=== PATIENT | female | born 1945 | race Hispanic/Latino ===

== ENCOUNTER → 2017-10-26 | Outpatient (CLI) | payer OTHER | LOC: RAH 12:24 | PROVIDERS: ATTEND Internal Medicine Endocrinology, Diabetes & Metabolism | DX: E04.1 Nontoxic single thyroid nodule (principal) | CPT/HCPCS: 76536 ==

== ENCOUNTER → 2018-06-28 | Outpatient (CLI) | payer OTHER | END | disposition home or self-care (01) | LOC: RAH 09:35 | PROVIDERS: ATTEND Internal Medicine | DX: R13.12 Dysphagia, oropharyngeal phase (principal); R63.3 Feeding difficulties | CPT/HCPCS: G8996; G8997; G8998; 74230; 92611 ==

== ENCOUNTER → 2018-07-06 | Outpatient (CLI) | payer OTHER | END | disposition home or self-care (01) | LOC: RAH 10:00 | PROVIDERS: ATTEND Physician Assistant Medical | DX: Z12.31 Encounter for screening mammogram for malignant neoplasm of breast (principal) | CPT/HCPCS: 77067 ==

== ENCOUNTER → 2019-01-30 | Outpatient (CLI) | payer OTHER ==
[2019-01-30 09:17] LABS: BASOPHILS % (AUTO) 0.4 % (0.0-5.0); EOSINOPHILS % (AUTO) 0.9 % (0.0-8.0); HEMATOCRIT 36.3 % (36-48); LYMPHOCYTES % (AUTO) 29.7 % (21.0-51.0); MEAN CORPUSCULAR HEMOGLOBIN 33.2 pg (27.0-33.0); MEAN CORPUSCULAR HGB CONC 34.4 g/dL (32.0-36.0); MEAN CORPUSCULAR VOLUME 96.4 fL (79-99); MONOCYTES % (AUTO) 8.1 % (3.0-13.0); NEUTROPHILS % (AUTO) 60.9 % (40.0-77.0); PLATELET COUNT (AUTO) 225 K/uL (130-400); RED BLOOD CELL COUNT(AUTO) 3.77 MIL/uL (4.00-5.50); RED CELL DISTRIBUTION WIDTH 12.4 % (11.0-15.5); WHITE BLOOD COUNT (AUTO) 6.3 K/uL (4.8-10.8)
[2019-01-30 09:25] LABS: POTASSIUM 4.6 mmol/L (3.5-5.1)
[2019-01-30 09:29] LABS: ALBUMIN 3.8 g/dL (3.5-5.0); BILIRUBIN,TOTAL 0.3 mg/dL (0.2-1.0); TOTAL PROTEIN, SERUM 7.6 g/dL (6.0-8.3)
== END | disposition home or self-care (01) ==
LOC: RAH 08:27
PROVIDERS: ATTEND Internal Medicine Gastroenterology
DX: K76.0 Fatty (change of) liver, not elsewhere classified (principal); N28.1 Cyst of kidney, acquired
CPT/HCPCS: 36415; 76700; 80053; 85025

== ENCOUNTER → 2019-02-13 | Outpatient (CLI) | payer OTHER | END | disposition home or self-care (01) | LOC: RAH 10:00 | PROVIDERS: ATTEND Internal Medicine Gastroenterology | DX: K57.10 Diverticulosis of small intestine without perforation or abscess without bleeding (principal); K44.9 Diaphragmatic hernia without obstruction or gangrene; K21.9 Gastro-esophageal reflux disease without esophagitis | CPT/HCPCS: 74240 ==

== ENCOUNTER 2019-10-13 16:07 | Emergency (ER) | payer OTHER ==
[2019-10-13 17:03] LABS: BASOPHILS % (AUTO) 0.5 % (0.0-5.0); EOSINOPHILS % (AUTO) 1.2 % (0.0-8.0); HEMATOCRIT 35.4 % (36-48); LYMPHOCYTES % (AUTO) 31.6 % (21.0-51.0); MEAN CORPUSCULAR HEMOGLOBIN 32.5 pg (27.0-33.0); MEAN CORPUSCULAR HGB CONC 34.5 g/dL (32.0-36.0); MEAN CORPUSCULAR VOLUME 94.4 fL (79-99); MONOCYTES % (AUTO) 9.1 % (3.0-13.0); NEUTROPHILS % (AUTO) 57.3 % (40.0-77.0); PLATELET COUNT (AUTO) 198 K/uL (130-400); RED BLOOD CELL COUNT(AUTO) 3.75 MIL/uL (4.00-5.50); RED CELL DISTRIBUTION WIDTH 11.9 % (11.0-15.5)
[2019-10-13] MEDS ORDERED: ASPIRIN 325 MG TABLET ONE (17:07)
[2019-10-13 17:17] LABS: CREATININE 1.1 mg/dL (0.5-1.5); POTASSIUM 3.9 mmol/L (3.5-5.1)
[2019-10-13 17:19] LABS: INR 0.89 (0.85-1.15); PARTIAL THROMBOPLASTIN TIME 27.1 SEC (26.3-35.5); PROTHROMBIN TIME 9.7 SEC (9.6-11.6)
[2019-10-13 17:21] LABS: ALBUMIN 3.5 g/dL (3.5-5.0); BILIRUBIN,TOTAL 0.2 mg/dL (0.2-1.0); TOTAL PROTEIN, SERUM 7.8 g/dL (6.0-8.3)
[2019-10-13] MEDS ORDERED: ACETAMINOPHEN EXTRA STRENGTH 500 MG TABLET ONE (17:26)
== END 2019-10-13 18:16 | disposition left against medical advice (07) ==
LOC: EDH 16:07
DX: R07.89 Other chest pain (principal); R94.31 Abnormal electrocardiogram [ECG] [EKG]; I25.10 Atherosclerotic heart disease of native coronary artery without angina pectoris; E78.5 Hyperlipidemia, unspecified; E11.9 Type 2 diabetes mellitus without complications; I10 Essential (primary) hypertension
CPT/HCPCS: 36415; 71045; 80053; 82550; 84484; 85025; 85610; 85730; 93005

== ENCOUNTER → 2019-11-21 | Outpatient (CLI) | payer OTHER ==
[~2019-11-21] MED LIST: REGADENOSON 0.4 MG/5 ML PF SYG IVP SCH
== END | disposition home or self-care (01) ==
LOC: SHCH 08:11
PROVIDERS: ATTEND Internal Medicine Cardiovascular Disease
DX: I25.10 Atherosclerotic heart disease of native coronary artery without angina pectoris (principal)
CPT/HCPCS: 78452; 93017; 96374; A9500 ×2; J2785

== ENCOUNTER → 2020-12-12 | Outpatient (CLI) | payer MEDICARE | END | disposition home or self-care (01) | LOC: SHCH 12:42 | PROVIDERS: ATTEND Internal Medicine Cardiovascular Disease | DX: R06.09 Other forms of dyspnea (principal) | CPT/HCPCS: 93306; 93356 ==

== ENCOUNTER → 2022-01-07 | Outpatient (CLI) | payer MEDICARE | END | disposition home or self-care (01) | LOC: RAH 10:10 | PROVIDERS: ATTEND Internal Medicine Gastroenterology | DX: R13.10 Dysphagia, unspecified (principal); R63.30 Feeding difficulties, unspecified | CPT/HCPCS: 74230; 92611 ==

== ENCOUNTER → 2022-10-08 | Outpatient (CLI) | payer MEDICARE | END | disposition home or self-care (01) | LOC: RAH 12:35 | PROVIDERS: ATTEND Internal Medicine Gastroenterology | DX: R13.12 Dysphagia, oropharyngeal phase (principal); R63.30 Feeding difficulties, unspecified | CPT/HCPCS: 74230; 92611 ==

== ENCOUNTER 2022-12-27 05:42 | Observation (INO) | payer MEDICARE ==
[~2022-12-27] VITALS: Ht 167.6 cm; Wt 72.6 kg
[2022-12-27 06:11] LABS: BASOPHILS % (AUTO) 0.5 % (0.0-5.0); EOSINOPHILS % (AUTO) 0.9 % (0.0-8.0); HEMATOCRIT 33.4 % (36-48); LYMPHOCYTES % (AUTO) 41.9 % (21.0-51.0); MEAN CORPUSCULAR HEMOGLOBIN 32.5 pg (27.0-33.0); MEAN CORPUSCULAR HGB CONC 34.4 g/dL (32.0-36.0); MEAN CORPUSCULAR VOLUME 94.4 fL (79-99); MONOCYTES % (AUTO) 11.1 % (3.0-13.0); NEUTROPHILS % (AUTO) 45.1 % (40.0-77.0); PLATELET COUNT (AUTO) 160 K/uL (130-400); RED BLOOD CELL COUNT(AUTO) 3.54 MIL/uL (4.00-5.50); RED CELL DISTRIBUTION WIDTH 11.9 % (11.0-15.5); WHITE BLOOD COUNT (AUTO) 6.3 K/uL (4.8-10.8)
[2022-12-27 06:46] LABS: ALBUMIN 3.6 g/dL (3.5-5.0); CREATININE 1.1 mg/dL (0.5-1.5); MAGNESIUM 1.6 mg/dL (1.80-2.40); POTASSIUM 3.9 mmol/L (3.5-5.1); TOTAL PROTEIN, SERUM 7.4 g/dL (6.0-8.3)
[2022-12-27] MEDS ORDERED: 0.9%NACL 1000ML 1,000 ML IV ONE (07:30)
[2022-12-27 07:41] LABS: INR 0.93 (0.85-1.15); PROTHROMBIN TIME 9.9 SEC (9.6-11.6)
[2022-12-27 07:43] LABS: PARTIAL THROMBOPLASTIN TIME 25.4 SEC (26.3-35.5)
[2022-12-27] MEDS ORDERED: SODI100037 PO (10:20)
[2022-12-27] MEDS ORDERED: METO-391 PO (10:20)
[2022-12-27] MEDS ORDERED: AEC81 PO (10:20)
[2022-12-27] MEDS ORDERED: ATOR40TA69 PO (10:20)
[2022-12-27] MEDS ORDERED: LEVO50CA4 PO (10:20)
[2022-12-27] MEDS ORDERED: DICY20TA3 PO (10:20)
[2022-12-27] MEDS ORDERED: DIVA500T52 PO (10:20)
[2022-12-27] MEDS ORDERED: SIME125C81 PO (10:20)
[2022-12-27] MEDS ORDERED: MIRA25TA PO (10:20)
[2022-12-27] MEDS ORDERED: ESOM40CA54 PO (10:20)
[2022-12-27] MEDS ORDERED: MELA3TAB69 PO (10:20)
[2022-12-27] MEDS ORDERED: ISOS30TA92 PO (10:20)
[2022-12-27] MEDS ORDERED: LOSA50TA64 PO (10:20)
[2022-12-27] MEDS ORDERED: LINA145C PO (10:20)
[2022-12-27] MEDS ORDERED: PROP20TA7 PO (10:20)
[2022-12-27] MEDS ORDERED: VITAMIN D PO (10:20)
[2022-12-27] MEDS ORDERED: HALO2TAB PO (10:20)
[2022-12-27] MEDS ORDERED: SUCR1TAB2 PO (10:20)
[2022-12-27] MEDS ORDERED: FURO20TA4 PO (10:20)
[2022-12-27 11:35] VITALS: BP 103/63
== END 2022-12-27 16:15 | disposition left against medical advice (07) ==
LOC: EDH 05:42 → EDHIP 08:25 → 2DH 13:09 → EDHIP 13:45
PROVIDERS: ADMIT Family Medicine; ATTEND Family Medicine
DX: E87.1 Hypo-osmolality and hyponatremia (principal); E86.0 Dehydration; E11.9 Type 2 diabetes mellitus without complications; I10 Essential (primary) hypertension; E03.9 Hypothyroidism, unspecified; E78.00 Pure hypercholesterolemia, unspecified; G20 Parkinson's disease; I25.10 Atherosclerotic heart disease of native coronary artery without angina pectoris; Z79.899 Other long term (current) drug therapy
CPT/HCPCS: 96360; 99284; 82550; 83735; 84484; 80053; 83880; 85025; 85610; 85730; 82948; 36415; 93005; G0378 ×8

== ENCOUNTER 2023-11-09 11:31 | Emergency (ER) | payer MEDICARE ==
[~2023-11-09] VITALS: Ht 167.6 cm; Wt 72.6 kg
[~2023-11-09 11:31] MED LIST changes: +AEC81 PO; +ATOR40TA69 PO; +DICY20TA3 PO; +DIVA500T52 PO; +ESOM40CA54 PO; +FURO20TA4 PO; +HALO2TAB PO; +ISOS30TA92 PO; +LEVO50CA4 PO; +LINA145C PO; +LOSA50TA64 PO; +MELA3TAB69 PO; +METO-391 PO; +MIRA25TA PO; +PROP20TA7 PO; -REGADENOSON 0.4 MG/5 ML PF SYG IVP SCH; +SIME125C81 PO; +SODI100037 PO; +SUCR1TAB2 PO; +VITAMIN D PO
[2023-11-09 12:15] LABS: BASOPHILS # (AUTO) 0.02 K/uL (0.00-0.20); BASOPHILS % (AUTO) 0.3 % (0.0-5.0); EOSINOPHILS # (AUTO) 0.02 K/uL (0.00-0.70); EOSINOPHILS % (AUTO) 0.3 % (0.0-8.0); HEMATOCRIT 31.7 % (36-48); IMMATURE GRANULOCYTE ABSOLUTE 0.02 K/uL (0-1); LYMPHOCYTES # (AUTO) 1.5 K/uL (1.0-4.8); LYMPHOCYTES % (AUTO) 19.6 % (21.0-51.0); MEAN CORPUSCULAR HEMOGLOBIN 32.8 pg (27.0-33.0); MEAN CORPUSCULAR VOLUME 93.8 fL (79-99); MONOCYTES # (AUTO) 0.8 K/uL (0.1-1.0); MONOCYTES % (AUTO) 10.5 % (3.0-13.0); NEUTROPHILS # (AUTO) 5.3 K/uL (1.8-7.7); PLATELET COUNT (AUTO) 252 K/uL (130-400); RED BLOOD CELL COUNT(AUTO) 3.38 MIL/uL (4.00-5.50); WHITE BLOOD COUNT (AUTO) 7.7 K/uL (4.8-10.8)
[2023-11-09 12:28] LABS: CREATININE 1.1 mg/dL (0.5-1.0); POTASSIUM 3.6 mmol/L (3.5-5.1)
[2023-11-09 12:33] LABS: ALBUMIN 2.9 g/dL (3.5-5.0); BILIRUBIN,TOTAL 0.3 mg/dL (0.2-1.0); TOTAL PROTEIN, SERUM 7.1 g/dL (6.0-8.3)
[2023-11-09] MEDS: 0.9% NACL 500ML IV.SOLN 500 ML IV ONE (12:39)
[2023-11-09] MEDS ORDERED: FLUT16H NASAL (12:59)
[2023-11-09] MEDS ORDERED: AMOX1TAB16 PO (12:59)
[2023-11-09 13:09] VITALS: BP 131/65; PULSE 85; RESP 18; O2SAT 99
[2023-11-09] MEDS: AMOX/CLAV 875/125MG TAB PO ONE (13:19)
== END 2023-11-09 13:56 | disposition home or self-care (01) ==
LOC: EDH 11:31
DX: J32.0 Chronic maxillary sinusitis (principal); R05.9 Cough, unspecified; R09.89 Other specified symptoms and signs involving the circulatory and respiratory systems; E11.9 Type 2 diabetes mellitus without complications; E78.00 Pure hypercholesterolemia, unspecified; E03.9 Hypothyroidism, unspecified; I10 Essential (primary) hypertension; K21.9 Gastro-esophageal reflux disease without esophagitis; Z79.82 Long term (current) use of aspirin; Z79.890 Hormone replacement therapy; Z79.899 Other long term (current) drug therapy
CPT/HCPCS: 99285; 96360; 71045; 84484; 80053; 85025; 36415; 70210; 93005; J7040

== ENCOUNTER 2023-12-06 17:00 | Emergency (ER) | payer MEDICARE ==
[~2023-12-06] VITALS: Ht 167.6 cm; Wt 73.0 kg
[~2023-12-06 17:00] MED LIST changes: +AMOX1TAB16 PO; +FLUT16H NASAL
[2023-12-06 21:27] VITALS: BP 142/68; PULSE 62; RESP 18; O2SAT 98
== END 2023-12-06 21:33 | disposition home or self-care (01) ==
LOC: EDH 17:00
DX: S00.03XA Contusion of scalp, initial encounter (principal); S50.01XA Contusion of right elbow, initial encounter; S10.83XA Contusion of other specified part of neck, initial encounter; I10 Essential (primary) hypertension; E11.9 Type 2 diabetes mellitus without complications; E78.00 Pure hypercholesterolemia, unspecified; E03.9 Hypothyroidism, unspecified; K21.9 Gastro-esophageal reflux disease without esophagitis; G20.A1 Parkinson's disease without dyskinesia, without mention of fluctuations; Z79.82 Long term (current) use of aspirin; Z79.899 Other long term (current) drug therapy; Z98.890 Other specified postprocedural states; W18.39XA Other fall on same level, initial encounter; Y93.89 Activity, other specified; Y92.89 Other specified places as the place of occurrence of the external cause; Y99.8 Other external cause status
CPT/HCPCS: 70450; 71250; 72125; 73070; 74176

== ENCOUNTER → 2024-04-25 | Outpatient (CLI) | payer MEDICARE ==
[~2024-04-25] MED LIST changes: -ESOM40CA54 PO; +ESOM40CA66 PO
== END | disposition home or self-care (01) ==
LOC: RAH 13:05
PROVIDERS: ATTEND Internal Medicine Gastroenterology
DX: R13.12 Dysphagia, oropharyngeal phase (principal); R63.30 Feeding difficulties, unspecified
CPT/HCPCS: 74230; 92611

== ENCOUNTER → 2024-07-04 | Outpatient (CLI) | payer MEDICARE ==
--- NOTE | 2024-07-04 10:06 | HMCIMG ---
DEXA BONE DENSITY SURVEY HISTORY: Osteoporosis COMPARISON: None FINDINGS: Bone densitometry study was performed. Bone mineral density of the lumbar spine is 0.888 gram per centimeter square which corresponds to a T score of -1.4 and a Z score of 1.2. Bone mineral density of the left hip is 0.828 grams per centimeter square which corresponds to a T score of -1 and a Z score of 1.1. IMPRESSION: 1. Osteopenia of the lumbar spine and left hip.
== END | disposition home or self-care (01) ==
LOC: RAH 08:13
PROVIDERS: ATTEND Internal Medicine
DX: M85.89 Other specified disorders of bone density and structure, multiple sites (principal); M81.0 Age-related osteoporosis without current pathological fracture; E83.52 Hypercalcemia
CPT/HCPCS: 77080

== ENCOUNTER 2024-12-12 11:33 | Observation (INO) | payer MEDICARE ==
[2024-12-11 22:00] VITALS: BP 152/62; PULSE 65; RESP 18; TEMP 98
[~2024-12-12] VITALS: Ht 162.6 cm; Wt 63.6 kg
[~2024-12-12 11:33] MED LIST changes: -LEVO50CA4 PO; +LEVO50CA5 PO
--- NOTE | 2024-12-12 11:46 | EKG ---
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 : 1945 Requested By: DEJAN TEAGUE Order Number: [id number] Reading MD: Edmar Matthews Measurements Intervals [place] Rate: 68 P: 0 NC: 0 QRS: 49 QRSD: 86 T: 138 QT: 424 QTc: 455 Interpretive Statements Atrial flutter with predominant 4:1 AV block Repol abnrm suggests ischemia, diffuse leads Compared to ECG 11/09/2023 11:56:52 AV block, advanced (high-grade) now present Early repolarization now present Possible ischemia now present T-wave abnormality no longer present Electronically Signed On 12-12-2024 16:18:55 CDT by Edmar Matthews Please click the below link to view image of tracing.
[2024-12-12 12:15] LABS: BASOPHILS # (AUTO) 0.01 K/uL (0.00-0.20); BASOPHILS % (AUTO) 0.2 % (0.0-5.0); EOSINOPHILS # (AUTO) 0.02 K/uL (0.00-0.70); EOSINOPHILS % (AUTO) 0.5 % (0.0-8.0); HEMATOCRIT 34.7 % (36-48); IMMATURE GRANULOCYTE ABSOLUTE 0.01 K/uL (0-1); LYMPHOCYTES # (AUTO) 1.6 K/uL (1.0-4.8); LYMPHOCYTES % (AUTO) 35.1 % (21.0-51.0); MEAN CORPUSCULAR HEMOGLOBIN 33.6 pg (27.0-33.0); MEAN CORPUSCULAR HGB CONC 34.6 g/dL (32.0-36.0); MEAN CORPUSCULAR VOLUME 97.2 fL (79-99); MONOCYTES # (AUTO) 0.6 K/uL (0.1-1.0); MONOCYTES % (AUTO) 13.8 % (3.0-13.0); NEUTROPHILS # (AUTO) 2.2 K/uL (1.8-7.7); NEUTROPHILS % (AUTO) 50.2 % (40.0-77.0); PLATELET COUNT (AUTO) 138 K/uL (130-400); RED BLOOD CELL COUNT(AUTO) 3.57 MIL/uL (4.00-5.50); WHITE BLOOD COUNT (AUTO) 4.4 K/uL (4.8-10.8)
[2024-12-12] MEDS: LACTATED RINGERS 1000ML 1,000 ML IV ONE (12:21)
[2024-12-12 12:23] LABS: POTASSIUM 4.1 mmol/L (3.5-5.1)
[2024-12-12 12:27] LABS: MAGNESIUM 1.6 mg/dL (1.80-2.40)
[2024-12-12 12:33] LABS: B-TYPE NATRIURETIC PEPTIDE 356 pg/mL (0-100)
--- NOTE | 2024-12-12 12:42 | HMCIMG ---
Exam Type: CHEST 1VW Clinical Information: cp Comparison: None Findings: The lungs are clear of infiltrates. The heart is normal in size. The bony and soft tissue structures of the chest are unremarkable. Impression: Clear lungs.
[2024-12-12 12:53] LABS: INR 0.97 (0.85-1.15); PROTHROMBIN TIME 10.3 SEC (9.6-11.6)
[2024-12-12 12:55] LABS: PARTIAL THROMBOPLASTIN TIME 27.5 SEC (26.3-35.5)
--- NOTE | 2024-12-12 13:11 | ERN ---
General Chief Complaint: Chest Pain Stated Complaint: CHEST PAIN Time Seen by MD: 11:40 Source: patient History of Present Illness Initial Comments Patient is a an 79-year-old female coming in with multiple complaints. Patient has a history of Parkinson's but lately has been having chest discomfort. She states that she called earlier in the morning but decided to hold off this is the chest pain she was having. Patient has not been able to sleep she states and has a history of obstructive sleep apnea as well. She has also been presenting with generalized body weakness. Allergies: Coded Allergies: No Allergy Information Available (Verified Allergy, Unknown, 02/11/16) No Known Drug Allergies (Unverified Allergy, Unknown, 11/20/19) Home Meds Reported Medications Haloperidol (Haloperidol) 2 Mg Tablet, 1 TAB PO DAILY for 30 Days, #60 TAB 0 Refills 12/12/24 Haloperidol (Haloperidol) 2 Mg Tablet, 1 TAB PO BID for 30 Days, #60 TAB 0 R efills 12/12/24 Haloperidol (Haloperidol) 2 Mg Tablet, 2 TAB PO HS for 30 Days, #30 TAB 0 Refills 12/12/24 Isosorbide Mononitrate (Isosorbide Mononitrate ER) 30 Mg Tab.er.24h, 0.5 TAB PO DAILY for 30 Days, #30 TAB 0 Refills 12/12/24 Ropinirole HCl (Ropinirole HCl) 0.25 Mg Tablet, 1 TAB PO HS for 30 Days, #30 TAB 0 Refills 12/12/24 Propranolol HCl (Propranolol HCl) 20 Mg Tablet, 1 TAB PO BID for 30 Days, #60 TAB 0 Refills 12/12/24 Trazodone HCl (Trazodone HCl) 50 Mg Tablet, 1 TAB PO HS for 30 Days, #30 TAB 0 Refills 12/12/24 Aspirin (ASPIRIN 81 MG ECTAB) 81 Mg Ectab, 81 MG PO DAILY, TAB.EC 12/27/22 Simethicone (Simethicone) 125 Mg Capsule, 125 MG PO QID, CAP 12/27/22 Linaclotide (Linzess) 145 Mcg Capsule, 145 MCG PO DAILY, CAP 12/27/22 Losartan Potassium (Losartan Potassium) 50 Mg Tablet, 50 MG PO DAILY, TAB 12/27/22 Esomeprazole Magnesium (Esomeprazole Magnesium) 40 Mg Capsule.dr, 40 MG PO DAILY, CAP 12/27/22 Furosemide (Furosemide) 20 Mg Tablet, 20 MG PO DAILY, TAB 12/27/22 Divalproex Sodium (Divalproex Sodium ER) 500 Mg Tab.er.24h, 500 MG PO BID, TAB 12/27/22 Atorvastatin Calcium (LIPITOR) 40 Mg Tablet, 40 MG PO DAILY, TAB 12/27/22 Levothyroxine Sodium (Levothyroxine) 50 Mcg Capsule, 50 MCG PO DAILY, CAP 12/27/22 Sodium Chloride (Sodium Chloride) 1,000 Mg Tab, 1000 MG PO BID, TAB 12/27/22 Discontinued Reported Medications [Vitamin D] No Conflict Check, 11962 UNITS PO AD 12/27/22 Melatonin (Melatonin) 3 Mg Tab.rapdis, 3 MG PO DAILY, TAB 12/27/22 Dicyclomine HCl (Dicyclomine HCl) 20 Mg Tablet, 20 MG PO DAILY, TAB 12/27/22 Metoprolol Succinate (Metoprolol Succinate) 50 Mg Tab.er.24h, 50 MG PO DAILY, TAB 12/27/22 Mirabegron (Myrbetriq) 25 Mg Tab.er.24h, 25 MG PO DAILY, TAB 12/27/22 Sucralfate (Sucralfate) 1 Gm Tablet, 1 GM PO TID, TAB 12/27/22 Isosorbide Mononitrate (Isosorbide Mononitrate ER) 30 Mg Tab.er.24h, 30 MG PO DAILY, TAB 12/27/22 Propranolol HCl (Propranolol HCl) 20 Mg Tablet, 20 MG PO TID, TAB 12/27/22 Haloperidol (Haloperidol) 2 Mg Tablet, 2 MG PO BID, TAB 12/27/22 Discontinued Scripts Fluticasone Propionate (Flonase Nasal [place]) 50 Mcg/Actuation [place], 1-2 SPRAY NASAL ONCE, #1 BOTTLE 0 Refills Prov:CHARLIE [facility] 11/09/23 Amoxicillin/Potassium Clav (Amox Tr-K Clv 875-125 mg Tab) 875 Mg-125 Mg Tablet, 1 EACH PO BID for 7 Days, #14 TAB 0 Refills Prov:CHARLIE [facility]OW[facility]LL [facility] 11/09/23 Past Medical History Past Medical History: Other Medical History Other: PARKINSONS, SLEEP APNEA Past Surgical History: None Surgical History Other: CARDIAC Female( History) History: Not Applicable ROS Dictation CONSTITUTIONAL: No chills, no fever, weakness, no diaphoresis, malaise. HEAD/FACE: No signs of trauma. EENT: No eye pain, no blurred vision, no tearing, no double vision, no ear pain , no ear discharge, no nose pain, no nasal congestion, no throat pain, no throat swelling, no mouth pain. RESPIRATORY: No cough, no orthopnea, SOB, no stridor, no wheezing. CARDIOVASCULAR: chest pain, no edema, no palpitations, no syncope. GASTROINTESTINAL/ABDOMINAL: No abdominal pain, no constipation, no diarrhea, no nausea, no vomiting. GENITOURINARY: No abnormal discharge, no dysuria, no frequent urination, no hematuria. No complaints of pain in the genitals. MUSCULOSKELETAL: No back pain, no gout, no joint pain, no joint swelling, no muscle pain, no muscle stiffness, no neck pain. INTEGUMENTARY: No change in color, no change in hair/nails, no dryness, no lesion, no lumps, no rash. NEUROLOGICAL/PSYCH: No anxiety, not depressed, no emotional problem, no headache, no numbness, no pre-existing deficit, no history of seizures, no tremors, no weakness. HEMATOLOGIC/LYMPHATIC: Not anemic, no history of blood clots, no apparent bleeding, no bruising, glands not swollen. All Systems Negative, Except as Noted. Physical Exam Physical Exam Dictation VITAL SIGNS: Reviewed. GENERAL APPEARANCE: Alert, oriented x3, no acute distress, obese. HEAD AND FACE: Non-traumatic. EYES: PERRL, pink conjunctivas, eyelid no trauma, anterior chamber clear. EARS: Pinnas intact and no signs of trauma or erythema. Ear canals clear and no discharge. TMs no erythema. NOSE: No discharge, no bleeding. OROPHARYNX: Mouth normal, teeth no caries, tongue pink. Pharynx clear, no erythema. Tonsils no exudates, no abscesses noted. Mucous membrane moist. NECK: Supple, non-tender, no thyromegaly, no masses, no JVD, no bruits. BREAST: Deferred. CHEST: No tenderness, no crepitus, no paradoxical movement, no retractions. LUNGS: Clear, well-ventilated, symmetric, no rales, no wheezing, no rhonchi, no stridor, good breath sounds bilaterally. HEART: Regular rate, regular rhythm, no murmur, no gallops. VASCULAR: No peripheral edema. ABDOMEN: Soft, positive bowel sounds, nondistended, no guarding, nontender, no rebound, no masses no hepatomegaly, no splenomegaly, no Valentino's sign, no hernias. RECTAL: Deferred. GENITAL: Deferred. NEUROLOGICAL: Normal speech, gross motor function intact, gross sensory function intact. MUSCULOSKELETAL: Neck nontender, full range of motion, back nontender, full range of motion. EXTREMITIES: Nontender, full range of motion. SKIN: Color pink, dry, no turgor, no rash, no lacerations, no abrasions, no contusions. LYMPHATICS: Deferred. Results Laboratory and Microbiology Lab and Micro Result Laboratory Tests Test 12/12/24 12:03 12/12/24 14:17 12/12/24 14:49 White Blood Count 4.4 K/uL (4.8-10.8) L Red Blood Count 3.57 MIL/uL (4.00-5.50) L Hemoglobin 12.0 g/dL (12.0-16.0) Hematocrit 34.7 % (36-48) L Mean Corpuscular Volume 97.2 fL (79-99) Mean Corpuscular Hemoglobin 33.6 pg (27.0-33.0) H Mean Corpuscular Hemoglobin Concent 34.6 g/dL (32.0-36.0) Red Cell Distribution Width 13.0 % (11.0-15.5) Platelet Count 138 K/uL (130-400) Mean Platelet Volume 10.2 fL (7.5-10.5) Immature Granulocyte % (Auto) 0.2 % (0-1) Neutrophils (%) (Auto) 50.2 % (40.0-77.0) Lymphocytes (%) (Auto) 35.1 % (21.0-51.0) Monocytes (%) (Auto) 13.8 % (3.0-13.0) H Eosinophils (%) (Auto) 0.5 % (0.0-8.0) Basophils (%) (Auto) 0.2 % (0.0-5.0) Neutrophils # (Auto) 2.2 K/uL (1.8-7.7) Lymphocytes # (Auto) 1.6 K/uL (1.0-4.8) Monocytes # (Auto) 0.6 K/uL (0.1-1.0) Eosinophils # (Auto) 0.02 K/uL (0.00-0.70) Basophils # (Auto) 0.01 K/uL (0.00-0.20) Absolute Immature Granulocyte (auto 0.01 K/uL (0-1) Nucleated Red Blood Cells 0.0 % (0.0-0.19) Prothrombin Time 10.3 SEC (9.6-11.6) Prothromb Time International Ratio 0.97 (0.85-1.15) Activated Partial Thromboplast Time 27.5 SEC (26.3-35.5) Sodium Level 136 mmol/L (136-145) Potassium Level 4.1 mmol/L (3.5-5.1) Chloride Level 100 mmol/L (101-111) L Carbon Dioxide Level 30 mmol/L (21-32) Blood Urea Nitrogen 16 mg/dL (7-18) Creatinine 1.0 mg/dL (0.5-1.0) Glomerular Filtration Rate Calc 57 mL/min (>90) Random Glucose 101 mg/dL (70-105) Total Calcium 9.6 mg/dL (8.5-10.1) Magnesium Level 1.60 mg/dL (1.80-2.40) L Total Creatine Kinase 47 U/L (21-232) # Troponin I High Sensitivity 6 ng/L (4-50) 9 ng/L (4-50) B-Type Natriuretic Peptide 356 pg/mL (0-100) H Urine Color COLORLESS (YELLOW) Urine Appearance CLEAR (CLEAR) Urine pH 7.5 (5.0-8.0) Urine Specific [place] 1.007 (1.001-1.031) Urine Protein NEGATIVE mg/dL (NEGATIVE) Urine Glucose (UA) NEGATIVE mg/dL (NEGATIVE) Urine Ketones NEGATIVE mg/dL (NEGATIVE) Urine Occult Blood NEGATIVE (NEGATIVE) Urine Nitrate NEGATIVE (NEGATIVE) Urine Bilirubin NEGATIVE mg/dL (NEGATIVE) Urine Urobilinogen 0.2 mg/dL (0.2-1.0) Urine Leukocyte Esterase NEGATIVE [place]/uL Urine RBC 0-1 /HPF (0-1) Urine WBC 0-1 /HPF (0-1) Urine Bacteria None /HPF (None Seen) Labs Reviewed?: Yes EKG/XRAY/US/CT/MRI EKG Comment 12/12/2024 time 11:40 a.m. Ventricular rate [address] wave elevation or depression X-RAY Comment [facility] [address] [place] [address] IMAGING REPORT Signed PATIENT: SIVAKUMAR PRESCOTT MR#: [id number] : 1945 SEX: F AGE: 79 LOCATION: EDH ORDER 114 STATUS: REG ER REPORT#: [id number] SERVICE 114 REASON: cp ORDERING PHYSICIAN: DEJAN TEAGUE MD PROCEDURE: CXR1VW - CHEST 1VW Exam Type: CHEST 1VW Clinical Information: cp Comparison: None Findings: The lungs are clear of infiltrates. The heart is normal in size. The bony and soft tissue structures of the chest are unremarkable. Impression: Clear lungs. DICTATED BY: SABAS BELLE MD DATE: 12/12/241239 ELECTRONICALLY SIGNED BY: SABAS BELLE MD DATE: 12/12/241241 CT Scan Comment [address] [place] [id number] IMAGING REPORT Signed PATIENT: SIVAKUMAR PRESCOTT MR#: [id number] : 1945 SEX: F AGE: 79 LOCATION: ED ORDER 151 STATUS: REG ER REPORT#: [id number] SERVICE 151 REASON: headache ORDERING PHYSICIAN: DEJAN TEAGUE MD PROCEDURE: HEAD WO - CT HEAD/BRAIN W/O CONTRAST Exam Type: CT HEAD/BRAIN W/O CONTRAST Clinical Information: headache Comparison: None CT Dose Index (CTDI): 57.33 mGy Dose Length Product (DLP): 956.79 total mGy-cm Findings: There is low attenuation throughout the periventricular white matter locations, consistent with chronic small vessel ischemic changes. No acute intra- or extra-axial fluid collections are seen. There is no evidence of acute or chronic hemorrhage. There is no mass effect or shift of midline structures. There are no areas to suggest acute infarct. The skull windows show no significant abnormalities. IMPRESSION: 1. CHRONIC SMALL VESSEL ISCHEMIC CHANGES. DICTATED BY: SABAS BELLE MD DATE: 12/12/24 160 ELECTRONICALLY SIGNED BY: SABAS BELLE MD DATE: 12/12/24 160 [facility] MDM: Differential diagnosis: Tachyarrhythmias, arrhythmias, chest pain, Rationale: Tests considered and ordered secondary to shared decision making include: labs, ECG and radiology Previous outside records reviewed: Old ER visits. Risk of complication and/or morbidity or mortality of patient management: None Medications-Per medication reconciliation Need for hospitalization: Patient does meet criteria for hospitalization. Need for emergency major/minor surgery: No There are no social concerns with this patient. Prescription drug management Prescriptions will include symptomatic care Patient's prior external medical records from other ER visits were reviewed by me as indicated. Prior testing and results from previous visits were reviewed. Prior tests were taken into account with medical decision making and resource utilization, independent historian/historians were used to obtain complete medical history. I independently interpreted the test that were performed, results were reviewed by me and considered findings on radiology if ordered. Medical management and examination interpretation discussions were had by me with other qualified healthcare professionals as indicated for the patient's care. Patient will be admitted under the care of [facility] for ongoing management. ED Course Orders Procedure Category Date Status Time 12 Lead Ekg Tracing- EKG 12/12/24 Resulted Technical 11:40 Cbc With Differential LAB 12/12/24 Complete 11:40 Prothrombin Time With LAB 12/12/24 Complete INR 11:40 B-Type Natriuretic LAB 12/12/24 Complete Peptide 11:40 Chest 1vw RAD 12/12/24 Resulted 11:40 Lactated Ringers PHA 12/12/24 Complete 1000ml (Lactated 12:00 Magnesium LAB 12/12/24 Complete 11:40 Creatine Kinase, Total LAB 12/12/24 Complete 11:40 Troponin I High LAB 12/12/24 Complete Sensitivity 11:40 Urinalysis Profile LAB 12/12/24 Complete 11:40 Partial LAB 12/12/24 Complete Thromboplastin Time 11:40 Basic Metabolic Panel LAB 12/12/24 Complete 11:40 12 Lead Ekg Tracing- EKG 12/12/24 Logged Technical 12:57 Troponin I High LAB 12/12/24 Complete Sensitivity 14:04 Hydralazine 20mg Inj PHA 12/12/24 Complete (Apresoline 20mg In 14:30 Ct Head/Brain W/O CT 12/12/24 Resulted Contrast 15:12 Current Medications Medications (Trade) Dose Ordered Sig/Alex Route PRN Reason Start Time Stop Time Status Last Admin Dose Admin Hydralazine HCl (APRESOLine 20MG INJ) 10 mg ONCE ONCE IV 12/12/24 14:30 12/12/24 14:31 DC 12/12/24 14:41 Lactated Ringer's 1,000 ml @ 0 mls/hr ONCE ONCE IV 12/12/24 12:00 12/12/24 12:01 DC 12/12/24 12:21 Vital Signs Date Time Temp Pulse Resp B/P (MAP) Pulse Ox O2 Delivery O2 Flow Rate FiO2 12/12/24 16:09 98.1 68 18 172/66 98 Room Air* 0 12/12/24 15:12 98.1 65 16 174/60 100 Room Air* 0 21 12/12/24 15:09 98.2 70 16 192/60 100 Room Air* 0 21 12/12/24 12:10 98.2 60 16 221/74 96 Room Air* 0 21 12/12/24 11:40 98.4 72 22 217/141 98 Room Air 0 DX & DISP Disposition: Inpatient Decision to Admit Time: 17:05 Departure Impression: Primary Impression: Tachyarrhythmia Additional Impression: Chest pain Condition: Stable Referrals: ARTURO MOORE MD (PCP) DEJAN TEAGUE MD December 12, 2024 13:11
[2024-12-12] MEDS: hydrALAZine 20MG/ML VIAL IV ONE (14:41)
[2024-12-12 15:07] LABS: APPEARANCE,URINE CLEAR (CLEAR); BILIRUBIN,URINE NEGATIVE (NEGATIVE); COLOR,URINE COLORLESS (YELLOW); GLUCOSE, URINE (UA) NEGATIVE (NEGATIVE); KETONES,URINE NEGATIVE (NEGATIVE); LEUKOCYTE ESTERASE ,URINE NEGATIVE Leu/uL (NEGATIVE); NITRATE,URINE NEGATIVE (NEGATIVE); OCCULT BLOOD,URINE NEGATIVE (NEGATIVE); PH,URINE 7.5 (5.0-8.0); PROTEIN,URINE NEGATIVE (NEGATIVE); UROBILINOGEN,URINE 0.2 mg/dL (0.2-1.0)
[2024-12-12 15:08] LABS: ADD UA MICROSCOPIC YES; MUCUS,URINE RARE LPF (None Seen); RBC,URINE 0-1 /HPF (0-1); WBC,URINE 0-1 /HPF (0-1)
[2024-12-12] MEDS ORDERED: ISOS30TA92 PO (15:39)
[2024-12-12] MEDS ORDERED: ROPI0.2535 PO (15:39)
[2024-12-12] MEDS ORDERED: TRAZ-185 PO (15:39)
[2024-12-12] MEDS ORDERED: PROP20TA7 PO (15:39)
--- NOTE | 2024-12-12 16:04 | HMCIMG ---
Exam Type: CT HEAD/BRAIN W/O CONTRAST Clinical Information: headache Comparison: None CT Dose Index (CTDI): 57.33 mGy Dose Length Product (DLP): 956.79 total mGy-cm Findings: There is low attenuation throughout the periventricular white matter locations, consistent with chronic small vessel ischemic changes. No acute intra- or extra-axial fluid collections are seen. There is no evidence of acute or chronic hemorrhage. There is no mass effect or shift of midline structures. There are no areas to suggest acute infarct. The skull windows show no significant abnormalities. IMPRESSION: 1. CHRONIC SMALL VESSEL ISCHEMIC CHANGES.
[2024-12-12] MEDS ORDERED: HALO2TAB PO ×3 (16:13→16:22)
--- NOTE | 2024-12-12 16:30 | NUR ---
HOME MEDICATIONS RECONCILED
--- NOTE | 2024-12-12 16:35 | NUR ---
PT TOOK 15 MG OF ISOSORBIDE FROM HER OWN MEDICATION.MD MORENO
[2024-12-12] MEDS ORDERED: traMADol HCL 50 MG TABLET PO PRN (17:00)
[2024-12-12] MEDS ORDERED: PoTASSium chloRIDE 20MEQ/100ML 100 ML IV PRN (17:00)
[2024-12-12] MEDS ORDERED: ondanSETRON 4MG INJ IVP PRN (17:00)
[2024-12-12] MEDS ORDERED: PoTASSium chl 10% ELIXIR 20MEQ 20 MEQ/15 ML UDCUP PO PRN (17:00)
[2024-12-12] MEDS ORDERED: PoTASSium chloRIDE 20MEQ ER 20 MEQ ERTAB PO PRN (17:00)
[2024-12-12] MEDS: ASPIRIN 325MG TAB PO ONE (18:46)
--- NOTE | 2024-12-12 20:13 | NUR ---
REPORT GIVEN TO GILLIAN HERMAN AT THIS TIME
[2024-12-12] MEDS: MAGNESIUM 2GM PREMIX 50ML 50 ML IV PRN (20:25)
[2024-12-12] MEDS: acetaMINOPHEN 325 MG TAB PO PRN (20:38)
--- NOTE | 2024-12-12 21:11 | HP ---
[facility] HISTORY & PHYSICAL Date Patient Seen: December 12, 2024 Time of Visit: 21:10 Supervising Physician: Dr. Miguelito Phillips Primary Care Physician: Dr. Jihan Jang Outpatient Specialists: [ ] Inpatient Consults: [ ] PROBLEM LIST: Anginal pain, POA Atrial flutter, POA Hypothyroidism, POA Parkinson's disease, POA Hypertension, POA Hyperlipidemia, POA Hypomagnesemia, POA PLAN: Admit to PCCU Continue cardiac monitoring Keep potassium level above four, magnesium level above two VS per unit protocol Stat EKG and troponin level of with chest pain Multimodal pain relief Keep head of bed flat degrees Aspiration precautions Keep SBP less than 160 P.r.n. hydralazine and labetalol Bilateral SCDs CBC, CMP, magnesium level daily HPI: 79-year-old female with past medical history of atrial flutter, Parkinson's disease, hypothyroidism, hyperlipidemia, hypertension, angina pe ctoralis who presented to ED via private vehicle with complaint of chest pain and found to have possible angina pectoralis. Apparently patient has been having issues with chest pain for the past days, that got worse today prompting ER visit. There is no associated dizziness, palpitation, shortness of breaths, or sweating. Patient was brought into ER by her provider. In ED stat CBC was done and showed no acute infection or anemia, her chemistry is unrevealing for any acute kidney or electrolyte abnormalities. Her initial troponin was normal with EKG showing atrial flutter with normal rate. Chest x-ray was also done and showed no acute intrapulmonary process, and CT of the head was also done showed chronic small-vessel disease. At present patient is currently hemodynamically stable, on room air with appropriate oxygen saturation, currently getting magnesium supplementation. Pat von denies any headache, chest pain, shortness of breath, abdominal pain, diarrhea, or flu-like symptoms. Patient denies any smoking, alcohol intake, or illicit drug use. Patient is with no kids of her own. She lives alone and gets help with a provider. PAST MEDICAL HX: see above PAST SURGICAL HX: noncontributory SOCIAL HISTORY: No tobacco, ETOH, or illicit drug use Coded Allergies: No Allergy Information Available (Verified Allergy, Unknown, 02/11/16) No Known Drug Allergies (Unverified Allergy, Unknown, 4/20/20) REVIEW OF SYSTEMS: 12 point ROS reviewed with patient. Pertinent positives mentioned above. Otherwise negative. PHYSICAL EXAM: GENERAL: alert, weak, awake oriented x 3 HEENT: EOMI, Sclera non icteric, moist mucosa NECK: Supple, no JVD, trachea midline LUNGS: Clear breath sounds bilaterally. No wheezes HEART: Regular rate and rhythm. Normal S1 and S2, without murmurs ABD: Abdomen soft, nontender. Bowel sounds present EXT: No clubbing cyanosis or edema NEURO: Alert and oriented to person, follows commands ; with significant hand tremors Vital Signs (last 8hr) Date Time Temp Pulse Resp B/P (MAP) Pulse Ox O2 Delivery O2 Flow Rate FiO2 12/12/24 19:30 98.2 69 20 146/49 98 Room Air* 0 21 12/12/24 18:00 98.1 61 18 166/61 97 Room Air* 0 21 12/12/24 17:00 98.1 69 17 139/65 98 Room Air* 0 21 12/12/24 16:09 98.1 68 18 172/66 98 Room Air* 0 21 12/12/24 15:12 98.1 65 16 174/60 100 Room Air* 0 21 12/12/24 15:09 98.2 70 16 192/60 100 Room Air* 0 21 LABS: Hematology Labs: Test 12/12/24 12:03 Range/Units White Blood Count 4.4 L 4.8-10.8 K/uL Red Blood Count 3.57 L 4.00-5.50 MIL/uL Hemoglobin 12.0 12.0-16.0 g/dL Hematocrit 34.7 L 36-48 % Mean Corpuscular Volume 97.2 79-99 fL Mean Corpuscular Hemoglobin 33.6 H 27.0-33.0 pg Mean Corpuscular Hemoglobin Concent 34.6 32.0-36.0 g/dL Red Cell Distribution Width 13.0 11.0-15.5 % Platelet Count 138 130-400 K/uL Mean Platelet Volume 10.2 7.5-10.5 fL Immature Granulocyte % (Auto) 0.2 0-1 % Neutrophils (%) (Auto) 50.2 40.0-77.0 % Lymphocytes (%) (Auto) 35.1 21.0-51.0 % Monocytes (%) (Auto) 13.8 H 3.0-13.0 % Eosinophils (%) (Auto) 0.5 0.0-8.0 % Basophils (%) (Auto) 0.2 0.0-5.0 % Neutrophils # (Auto) 2.2 1.8-7.7 K/uL Lymphocytes # (Auto) 1.6 1.0-4.8 K/uL Monocytes # (Auto) 0.6 0.1-1.0 K/uL Eosinophils # (Auto) 0.02 0.00-0.70 K/uL Basophils # (Auto) 0.01 0.00-0.20 K/uL Absolute Immature Granulocyte (auto 0.01 0-1 K/uL Nucleated Red Blood Cells 0.0 0.0-0.19 % Chemistry Labs: Test 12/12/24 17:37 12/12/24 12:03 Range/Units Total Creatine Kinase 40 21-232 U/L Troponin I High Sensitivity 11.7 4-50 ng/L Sodium Level 136 136-145 mmol/L Potassium Level 4.1 3.5-5.1 mmol/L Chloride Level 100 L 101-111 mmol/L Carbon Dioxide Level 30 21-32 mmol/L Blood Urea Nitrogen 16 7-18 mg/dL Creatinine 1.0 0.5-1.0 mg/dL Glomerular Filtration Rate Calc 57 >90 mL/min Random Glucose 101 70-105 mg/dL Total Calcium 9.6 8.5-10.1 mg/dL Magnesium Level 1.60 L 1.80-2.40 mg/dL B-Type Natriuretic Peptide 356 H 0-100 pg/mL Coagulation Labs: Test 12/12/24 17:37 12/12/24 12:03 Range/Units D-Dimer Quantitative (PE/DVT) 461 0-500 ng/mL Prothrombin Time 10.3 9.6-11.6 SEC Prothromb Time International Ratio 0.97 0.85-1.15 Activated Partial Thromboplast Time 27.5 26.3-35.5 SEC DIAGNOSTICS / RADIOLOGY RESULTS: Exam Type: CT HEAD/BRAIN W/O CONTRAST Clinical Information: headache Comparison: None CT Dose Index (CTDI): 57.33 mGy Dose Length Product (DLP): 956.79 total mGy-cm Findings: There is low attenuation throughout the periventricular white matter locations, consistent with chronic small vessel ischemic changes. No acute intra- or extra-axial fluid collections are seen. There is no evidence of acute or chronic hemorrhage. There is no mass effect or shift of midline structures. There are no areas to suggest acute infarct. The skull windows show no significant abnormalities. IMPRESSION: 1. CHRONIC SMALL VESSEL ISCHEMIC CHANGES. Exam Type: CHEST 1VW Clinical Information: cp Comparison: None Findings: The lungs are clear of infiltrates. The heart is normal in size. The bony and soft tissue structures of the chest are unremarkable. Impression: Clear lungs. PLAN NEURO: Minimize central acting medications as possible. Maintain fall precautions, adequate lighting during the day PULMONARY: Supplemental 02 as needed. Maintain aspiration precautions at all times CARDIOVASCULAR: Follow hemodynamics. Vital signs per facility protocol GI & NUTRITION: Continue with nutritional support. Continue stool softeners and laxatives as needed. KIDNEYS & ELECTROLYTES: Strict monitoring of intake, output and overall fluid balance. Avoid nephrotoxic medications to the extent possible. Medications to be dosed according to renal function. Monitor electrolytes and replace as needed ENDOCRINE: Maintain blood glucose between 100-180 at all times. Hypoglycemia protocol in place INFECTIOUS DISEASE: Trend temperature, WBC and procalcitonin level Follow cultures, deescalate antibiotics as soon as possible. Panculture if new onset fever ONCOLOGY/HEMATOLOGY/COAGULATION: Monitor for s/s of bleeding Monitor hemoglobin, coagulation studies as needed SKIN: Pressure ulcer prevention per facility protocol Specialty mattress ORTHO/REHAB: Continue PT/OT Prophylaxis: Continue GI and DVT prophylaxis Code Status: Full Resuscitation Disposition: TBD Other: Total patient care time exceeds 35 minutes excluding all procedures. Supervising physician: RORO Godoy APRN December 12, 2024 21:11
--- NOTE | 2024-12-12 21:30 | NUR ---
[facility] [employer] ROUNDED AND SAW PATIENT.
[2024-12-12] MEDS: simVASTatin 20 MG TABLET PO SCH (21:38)
[2024-12-12] MEDS: FAMOTIDINE 20MG TAB PO SCH (21:38)
[2024-12-13] VITALS (8 sets, daily range): BP systolic 123–178; BP diastolic 57–83; PULSE 60–89; RESP 17–18; TEMP 97.7–98.6; O2SAT 96–99
[2024-12-13 05:25] LABS: MAGNESIUM 1.9 mg/dL (1.80-2.40)
[2024-12-13] MEDS: hydrALAZine 20MG/ML VIAL IV PRN (05:41)
[2024-12-13] MEDS: ASPIRIN 81 MG EC TAB PO SCH (09:04)
[2024-12-13] MEDS: ENOXAPARIN SODIUM 40 MG/0.4 ML SYRINGE SQ SCH (09:06)
--- NOTE | 2024-12-13 14:37 | DS ---
[facility] DISCHARGE SUMMARY Date Patient Seen: December 13, 2024 Time of Visit: 14:33 Supervising Physician: Dr. Dayron Hazel Primary Care Physician: Dr. Jihan Jang Outpatient Specialists: [ ] Inpatient Consults: [ ] PROBLEM LIST: Angina Pectoris, POA Atrial flutter, POA currently NSR Hypothyroidism, POA Parkinson's disease, POA Hypertension, POA Hyperlipidemia, POA Hypomagnesemia, POA HOSPITAL COURSE: This is a 79-year-old female with past medical history of atrial flutter, Parkinson's disease, hypothyroidism, hyperlipidemia, hypertension and angina pectoralis who presented to ED via private vehicle with complaint of chest pain and found to have possible angina pectoralis. Apparently patient has been having issues with chest pain for the past days, that got worse today prompting ER visit. The patient at that she recently visited with her neurologist who referred her to therapy for her Parkinson and has been undergoing therapy over the past week. She reports the pain in the midsternal area between her breasts and is aware that the therapy might be the inciting factor of her pain. In ED stat CBC was done and showed no acute infection or anemia, her chemistry is unrevealing for any acute kidney or electrolyte abnormalities. Her initial troponin was normal with EKG showing atrial flutter with normal rate. Chest x-ray was also done and showed no acute intrapulmonary process, and CT of the head was also done showed chronic small-vessel disease. Troponin trend times 4 sets showed no elevation of concern 6 >> 9 >> 11.7 >>12.4. Total CK was within normal range highest at 47. Magnesium was 1.60, later corrected at 1.90. Currently on the monitor the patient is normal sinus rhythm. During my visit, the patient was lying in bed and reports feeling much better today. Does not report any further chest pain. I discussed at length the findings on the EKG, the current tracings on the monitor and the troponin trends. Advised the patient that she is stable enough can be discharged home and follow up in outpatient setting with her PCP and she agreed. The pain is reproducible and advised that this may have been secondary to her therapy which he started approximately a week ago. With that said, I am going to review and reconcile medication list with the patient and plan for discharge home today. Addendum [id number]: The patient was for discharge home today. Unfortunately she converted to AFib and I was notified by the staff nurse. With the patient report, nurse he sees Dr. Hodgson cardiology. He will be consulted for further evaluation and management. The discharge will be discontinued and patient will remain hospitalized. Please consider this discharge summary as a progress note. HPI (per admitting provider) The patient was treated for the following problems: ACTIVE PROBLEM LIST FOR THE HOSPITALIZATION: Reproducible mid-sternal pain CHRONIC PROBLEMS: continue previous management per PCP unless otherwise indicated DOCUMENT MANAGEMENT CONSULTANT FINDINGS/RECOMMENDATIONS: [ ] PROCEDURES: as mentioned above DISCHARGE MEDICATIONS: See med list. Pt hemodynamically stable and afebrile at time of discharge. PCP notified of patients admission, hospital course and discharge. PHYSICAL EXAM: GENERAL: Alert, weak, awake oriented x 3 HEENT: EOMI, Sclera non icteric, moist mucosa NECK: Supple, no JVD, trachea midline LUNGS: Clear breath sounds bilaterally. No wheezes HEART: Regular rate and rhythm. Normal S1 and S2, without murmurs ABD: Abdomen soft, nontender. Bowel sounds present EXT: No clubbing cyanosis or edema NEURO: Alert and oriented to person, follows commands ; with significant hand tremors FOLLOW-UP: Follow-up with PCP in 2-3 days RECOMMENDATIONS: See Discharge Instructions This case was seen and discussed with my supervising physician. More than 30 minutes spent on discharge process, including evaluation of the patient, discussion with nursing staff, medication reconciliation and follow-up appointments ADELE MORAN NP December 13, 2024 14:37
--- NOTE | 2024-12-13 17:35 | CONS ---
[facility] CARDIOLOGY CONSULTATION NOTE Date Patient Seen: December 13, 2024 Time of Visit: 17:28 Reason for Consultation: [Atrial flutter History of Present Illness: [ 79-year-old female who follows in the cardiology clinic with Dr. Christian Enciso and has a past medical history of hypertension, hyperlipidemia, OTTO, Parkinson's, resting tremor, severe anger disorder on Haldol/Depakote, who presented to [facility] ER endorsing mild anterior nonradiating localized chest pain. She denies a history of similar symptoms, CAD/Myocardial infarction, and her symptoms are not associated with meals. Her presenting ECG revealed atrial flutter with no acute ischemic changes and on chart review this appears to be a new diagnosis. Serial troponins have been negative x3 and her ECGs have been nonischemic. Primary team was prepping for discharge when patient became tachycardic and review of telemetry revealed atrial flutter and atrial fibrillation with ventricular rates in the 120s to 130s. On evaluation the bedside she denies chest pain, palpitations, dyspnea, or any other anginal equivalents. Current review of telemetry as noted sinus tach and atrial flutter in the 120s and she is hemodynamically stable in no acute distress. Review of her most recent labs were within normal limits.. Cardiology was consulted for atrial flutter.] Past Medical History: [ Refer to HPI] Past Surgical History: [Refer to chart] Family History: [ Noncontributory] Social History: [N/a] Habits: [Never] smoker. [Denies] alcohol consumption. [Denies] illicit drug use Review of Systems: Review of 12 point systems are negative except per HPI Physical Examination: GENERAL: [No acute distress.] HEAD: [Normal with no signs of head trauma.] EYES: [PERRLA, EOMI, conjunctiva and sclera normal.] ENT: [Hearing grossly intact, normal oropharynx.] NECK: [Supple without JVD. There is no tenderness, lymphadenopathy, or masses. No thyromegaly. Normal carotid upstrokes without bruits.] LUNGS: [Clear breath sounds bilaterally. There are right basilar rales one third of the way up the chest. No wheezes, or rhonchi.] HEART: [Tachycardic, irregularly irregular. Normal S1 and S2 without mumurs, gallop or rub.] VASC: [Peripheral pulses +2 bilaterally.] ABD: [Bowel sounds normal, soft, nontender, no masses, no organomegaly. No audible bruits.] : [Not examined] LYMPH: [No lymphadenopathy noted.] EXT: [No clubbing, cyanosis or edema.] SKIN: [No rashes or lesions noted.] NEURO: [Awake, alert, and oriented x3. Resting tremor noted. With no focal neuro/sensory deficits.] Vital Signs (last 8hr) Date Time Temp Pulse Resp B/P (MAP) Pulse Ox O2 Delivery O2 Flow Rate FiO2 12/13/24 15:30 98.1 89 17 135/83 97 Room Air 12/13/24 11:00 98.6 88 18 123/72 97 Room Air Laboratory: [ ] Hematology Labs: Test 12/12/24 12:03 Range/Units White Blood Count 4.4 L 4.8-10.8 K/uL Red Blood Count 3.57 L 4.00-5.50 MIL/uL Hemoglobin 12.0 12.0-16.0 g/dL Hematocrit 34.7 L 36-48 % Mean Corpuscular Volume 97.2 79-99 fL Mean Corpuscular Hemoglobin 33.6 H 27.0-33.0 pg Mean Corpuscular Hemoglobin Concent 34.6 32.0-36.0 g/dL Red Cell Distribution Width 13.0 11.0-15.5 % Platelet Count 138 130-400 K/uL Mean Platelet Volume 10.2 7.5-10.5 fL Immature Granulocyte % (Auto) 0.2 0-1 % Neutrophils (%) (Auto) 50.2 40.0-77.0 % Lymphocytes (%) (Auto) 35.1 21.0-51.0 % Monocytes (%) (Auto) 13.8 H 3.0-13.0 % Eosinophils (%) (Auto) 0.5 0.0-8.0 % Basophils (%) (Auto) 0.2 0.0-5.0 % Neutrophils # (Auto) 2.2 1.8-7.7 K/uL Lymphocytes # (Auto) 1.6 1.0-4.8 K/uL Monocytes # (Auto) 0.6 0.1-1.0 K/uL Eosinophils # (Auto) 0.02 0.00-0.70 K/uL Basophils # (Auto) 0.01 0.00-0.20 K/uL Absolute Immature Granulocyte (auto 0.01 0-1 K/uL Nucleated Red Blood Cells 0.0 0.0-0.19 % Chemistry Labs: Test 12/13/24 04:38 12/12/24 12:03 Range/Units Magnesium Level 1.90 1.80-2.40 mg/dL Total Creatine Kinase 46 21-232 U/L Troponin I High Sensitivity 12.4 4-50 ng/L Sodium Level 136 136-145 mmol/L Potassium Level 4.1 3.5-5.1 mmol/L Chloride Level 100 L 101-111 mmol/L Carbon Dioxide Level 30 21-32 mmol/L Blood Urea Nitrogen 16 7-18 mg/dL Creatinine 1.0 0.5-1.0 mg/dL Glomerular Filtration Rate Calc 57 >90 mL/min Random Glucose 101 70-105 mg/dL Total Calcium 9.6 8.5-10.1 mg/dL B-Type Natriuretic Peptide 356 H 0-100 pg/mL Coagulation Labs: Test 12/12/24 17:37 12/12/24 12:03 Range/Units D-Dimer Quantitative (PE/DVT) 461 0-500 ng/mL Prothrombin Time 10.3 9.6-11.6 SEC Prothromb Time International Ratio 0.97 0.85-1.15 Activated Partial Thromboplast Time 27.5 26.3-35.5 SEC Diagnostics / Radiology: [Copy/Paste Echos/Imaging Report here] Assessment: [New onset atrial flutter/fibrillation Hypertension Hyperlipidemia OTTO Parkinson's disease ] Plan: [#new onset atrial flutter On chart review this appears to be a new diagnosis and patient denies a history of similar symptoms and is not currently taking anticoagulation Presenting ECG revealed atrial flutter with no acute ischemic changes and serial troponins have been negative Today she became tachycardic and review of telemetry has revealed sinus tachycardia, atrial flutter and AFib She is currently tachycardic into the 120s denying any anginal symptoms or equivalents Please order formal 2D echocardiogram to assess systolic and valvular function We will initiate diltiazem 180 mg extended release and monitor her response (we will defer the use of beta-blockers given patient is already on propranolol for her Parkinson's tremor) please keep patient on telemetry. Monitor/replace electrolytes as needed Formal recommendations pending 2D echocardiogram and response to diltiazem Prior to discharge we will consider initiation of anticoagulation for CVA PPX Thank you for this consult. Cardiology will continue to follow along pending 2D echocardiogram results and rate control] SOPHIA GRIFFIN MD December 13, 2024 17:35
--- NOTE | 2024-12-13 17:47 | NUR ---
BP 149/112, HEART RATE 139, ATRIAL FIB. MEDICATED WITH LOPRESSOR 5MG IV SLOW PUSH.
[2024-12-13] MEDS: dilTIAZem 180MG SR CAP PO SCH (17:48)
[2024-12-13] MEDS: metoPROLOL tartRATE 1 MG/ML 5ML VIAL IV PRN (17:49)
--- NOTE | 2024-12-13 17:56 | NUR ---
BP 147/64 , HR 113 ATRIAL FIB. WILL CONTINUE TO MONITOR.
[2024-12-13] MEDS: LACTULOSE 20 GM/30 ML UDCUP PO PRN (18:10)
[2024-12-13] MEDS: SODIUM CHLORIDE 1,000 MG TAB PO SCH (21:05)
[2024-12-13] MEDS: PROPRANOLOL HCL 20 MG TAB PO SCH (21:06)
[2024-12-13] MEDS: HALOPERIDOL 1 MG TABLET PO SCH (21:06)
[2024-12-13] MEDS: trAZOdone HCL 50 MG TAB PO SCH (21:06)
[2024-12-13] MEDS: divALPRoex SOdium 250 MG TAB PO SCH (21:06)
[2024-12-13] MEDS: ropiNIRole HCL 0.25 MG TABLET PO SCH (21:06)
[2024-12-14] VITALS (10 sets, daily range): BP systolic 88–154; BP diastolic 34–95; PULSE 60–100; RESP 16–18; TEMP 97.6–98.9; O2SAT 96–98
[2024-12-14] MEDS: levoTHYROxine 50 MCG TABLET PO SCH (05:44)
--- NOTE | 2024-12-14 08:28 | PN ---
[facility] Cardiology Progress Note CARDIOLOGY PROGRESS NOTE DECEMBER 14, 2024 Problems: 1. Chest pain 2. New onset atrial flutter 3. hypertension 4. Obstructive sleep apnea 5. Parkinson's disease 6. CAD with 50% lad stenosis documented January 2001 7. Schizoaffective disorder 8. Statin intolerance This morning blood pressure is running [id number] and 150 systolic rate 90 and 100 per. The patient has a low-grade temperature. Troponins times four have been normal. The patient continues on aspirin atorvastatin diltiazem Lovenox 40 mg subQ daily Depakote furosemide Haldol isosorbide mononitrate levothyroxine losartan metoprolol tartrate pantoprazole potassium protocol ropinirole and trazodone. 2D echocardiogram is pending. The patient remains in atrial flutter. This point recommend anticoagulation with Eliquis. She is currently 79 years old weighs 65 kilos and has a creatinine of 1.0. We will recommend5 mg b.i.d.. We will discontinue Lovenox. If rate remains controlled over the next24 hours she can be discharged home and return for elective cardioversion versus a flutter ablation in 4-6 weeks. ADEN KAM MD December 14, 2024 08:28
[2024-12-14] MEDS: atorVAStatin 40 MG TABLET PO SCH (08:47)
[2024-12-14] MEDS: ASPIRIN 81 MG EC TAB PO SCH (08:48)
[2024-12-14] MEDS: PANTOPrazole 40 MG TAB DR PO SCH (08:48)
[2024-12-14] MEDS: ISOSORBIDE MONO 30MG SR TAB PO SCH (08:49)
[2024-12-14] MEDS: LoSARTan 50 MG TABLET PO SCH (08:49)
--- NOTE | 2024-12-14 08:49 | NUR ---
DCP: HOME WITH [facility] Pt with Parkinson's, lives at home alone. Siblings assist pt as needed. Pt has private pay provider 3hrs daily to assist with ADLS, home management and meal prep. Pt uses a walker with seat and shower chair at home. Has [facility], nurse every other day and PT 3x a week. Pt wants to continue with , signed consent. Consent on chart. PCP is Jihan Jang and uses [facility] for rx. Pt to return home with , family to transport. Sister Rand Multani [phone] Jill at [facility] informed of admission as requested by pt. They will accept [place] back at [place] Addendum: 12/14/24 at 0900 by GINO KIRKPATRICK Amended: Links added.
[2024-12-14] MEDS: furoSEMIDE 20 MG TABLET PO SCH (08:50)
[2024-12-14] MEDS: (Linaclotide (Linzess) 145 MCG) PO SCH (08:53)
[2024-12-14] MEDS: APIXaban 5 MG TABLET PO SCH (08:57)
[2024-12-14] MEDS ORDERED: APIXaban 5 MG TABLET PO SCH (09:00)
[2024-12-14 09:14] LABS: CREATININE 1.1 mg/dL (0.5-1.0); POTASSIUM 3.8 mmol/L (3.5-5.1)
--- NOTE | 2024-12-14 11:48 | NUR ---
Hypotensive episode Patient was taking a bath then became hypotensive. Dr. callaway notified, orders given. HR-60 BP- 88/52 O2- 100 (on 3 L nasal) RR- 18
--- NOTE | 2024-12-14 12:56 | PN ---
[facility] PROGRESS NOTE Date Patient Seen: December 14, 2024 Time of Visit: 12:55 Supervising Physician: Dr. Dayron Hazel Primary Care Physician: Dr. Jihan Jang Outpatient Specialists: [ ] Inpatient Consults: [ ] PROBLEM LIST: Angina Pectoris, POA Atrial flutter, POA currently NSR Hypothyroidism, POA Parkinson's disease, POA Hypertension, POA Hyperlipidemia, POA Hypomagnesemia, POA INTERVAL HISTORY: 12/14/24: At the time of my evaluation, the patient was lying in bed. Staff nurse reports no acute events overnight. She remains on room air and with optimal oxygen saturation. On the monitor, the patient remains in A-flutter. Laboratory data showed chemistry panel with a sodium of 134, chloride 99, BUN 22, creatinine 1.1 and GFR 51. 2D echo was ordered and is pending official read. Currently, the patient remains on Cardizem and was started on apixaban. She is also on Imdur, furosemide, atorvastatin and aspirin. No other complaint. REVIEW OF SYSTEMS: 12 point ROS reviewed with patient. Pertinent positives mentioned above. Otherwise negative. PHYSICAL EXAM: GENERAL: Alert, weak, awake oriented x 3 HEENT: EOMI, Sclera non icteric, moist mucosa NECK: Supple, no JVD, trachea midline LUNGS: Clear breath sounds bilaterally. No wheezes HEART: Regular rate and rhythm. Normal S1 and S2, without murmurs ABD: Abdomen soft, nontender. Bowel sounds present EXT: No clubbing cyanosis or edema NEURO: Alert and oriented to person, follows commands ; with significant hand t remors Vital Signs (last 8hr) Date Time Temp Pulse Resp B/P (MAP) Pulse Ox O2 Delivery O2 Flow Rate FiO2 12/14/24 08:10 97.9 87 16 138/95 95 Room Air LABS: Chemistry Labs: Test 12/14/24 11:48 12/14/24 08:55 12/13/24 04:38 Range/Units Whole Blood Glucose 137 H 70-110 MG/DL Sodium Level 134 L 136-145 mmol/L Potassium Level 3.8 3.5-5.1 mmol/L Chloride Level 99 L 101-111 mmol/L Carbon Dioxide Level 25 21-32 mmol/L Blood Urea Nitrogen 22 H 7-18 mg/dL Creatinine 1.1 H 0.5-1.0 mg/dL Glomerular Filtration Rate Calc 51 >90 mL/min Random Glucose 205 H 70-105 mg/dL Total Calcium 8.7 8.5-10.1 mg/dL Magnesium Level 1.90 1.80-2.40 mg/dL Total Creatine Kinase 46 21-232 U/L Troponin I High Sensitivity 12.4 4-50 ng/L Coagulation Labs: Test 12/12/24 17:37 Range/Units D-Dimer Quantitative (PE/DVT) 461 0-500 ng/mL DIAGNOSTICS / RADIOLOGY RESULTS: [ ] PLAN 12/14/24: For now, going to continue current management for the patient. We will continue on antiarrhythmic management and anticoagulation therapy. She will also remain on antianginal therapy with Imdur and diuretic therapy with Lasix. Prior to my visit, cardiology saw the patient and from their standpoint, the patient can be discharged home tomorrow if rate control is achieved. The patient will need to return for elective cardioversion versus a flutter ablation in 4-6 weeks. This was discussed with the patient at the bedside. We will monitor the patient's progress and response to management. We will continue to provide general supportive care, GI and DVT prophylaxis. Further orders per attending MD and hospital course. NEURO: Minimize central acting medications as possible. Maintain fall precautions, adequate lighting during the day PULMONARY: Supplemental 02 as needed. Maintain aspiration precautions at all times CARDIOVASCULAR: Follow hemodynamics. Vital signs per facility protocol GI & NUTRITION: Continue with nutritional support. Continue stool softeners and laxatives as needed. KIDNEYS & ELECTROLYTES: Strict monitoring of intake, output and overall fluid balance. Avoid nephrotoxic medications to the extent possible. Medications to be dosed according to renal function. Monitor electrolytes and replace as needed ENDOCRINE: Maintain blood glucose between 100-180 at all times. Hypoglycemia protocol in place INFECTIOUS DISEASE: Trend temperature, WBC and procalcitonin level Follow cultures, deescalate antibiotics as soon as possible. Panculture if new onset fever ONCOLOGY/HEMATOLOGY/COAGULATION: Monitor for s/s of bleeding Monitor hemoglobin, coagulation studies as needed SKIN: Pressure ulcer prevention per facility protocol Specialty mattress ORTHO/REHAB: Continue PT/OT Prophylaxis: Continue GI and DVT prophylaxis Code Status: Full Resuscitation Disposition: TBD Other: Patient was seen and case discussed with cuong BOLDEN. Plan was discussed and agreed upon. ADELE MORAN NP December 14, 2024 12:56
--- NOTE | 2024-12-14 13:10 | NUR ---
EATING LUNCH MEAL, BP 90/35. STATES SHE FEELS BETTER. WILL CONTINUE TO MONITOR.
[2024-12-14] MEDS: 0.9% NACL 250ML 250 ML IV SCH (13:51)
--- NOTE | 2024-12-14 21:10 | HMCSR ---
APPROVED REPORT EXAM: Two-dimensional and M-mode echocardiogram with Doppler and color Doppler. INDICATION ICD: Atrial Fibrillation 2D Dimensions RVDd3.0 cmLVEF(%)81.6 (>50%)LVED Vol(simp.)44.0 mL IVSd1.0 (0.7-1.1cm)FS(%)49 %LVES Vol(simp.)17.0 mL LVDd3.5 (3.8-5.6cm)LA (2D)3.8 (1.6-4.0cm)LVEF(%, simp.)61 % PWd0.8 (0.7-1.1cm)Ao Root(2D)3.0 (2.0-3.7cm)LA ESV INDEX (BP)47.46 mL/m2 LVDs1.8 (2.5-4.0cm)LVOT diam1.6 (1.8-2.4cm) IVC diam1.3 cm Deformation Strain Apical 4-12.0 % Apical 2-16.2 % Apical 3-14.3 % Global Strain-14.1 % M-Mode Dimensions EPSS0.2 cm LA (MM)3.7 (1.6-4.0cm) Ao Root(MM)2.4 (2.0-3.7cm) Aortic Valve AoV Vmax1.2 m/Mariaa Peak GR5.7 mmHgLVOT Vmax1.1 m/s AoV VTI0.2 mAo Mean GR3.4 mmHgLVOT VTI0.20 m REGGIE (VMAX)1.94 cm2AVA (VTI) 1.9 cm2 Mitral Valve MV E Vmax80.8 cm/sDECEL Mudr889 ms MV A Vmax32.1 cm/sP 1/2 T48 ms E/A ratio2.5MVA (PHT)4.6 cm2 TDI E/E' Yhwrbi89.2E/E' Lateral9.0 Medial E' Peak V6.62 cm/sLateral E' Peak V8.98 cm/s Pulmonary Valve PV Vmax1.4 m/sPV VTI0.28 mPV Mean GR4.5 mmHg PV Peak GR8.2 mmHg Tricuspid Valve TR Vmax2.7 m/sRAP (EST) 3 aeHuIMQH95.5 mmHg TR Peak GR28.5 mmHg Left Ventricle Left ventricular cavity size is normal. There is normal LV segmental wall motion. There is normal lef t ventricular wall thickness. LVEF is 60-65%. Indeterminate diastolic dysfunction. Right Ventricle The right ventricle is normal size. The right ventricular systolic function is normal. Atria The left atrium is moderately to severely dilatedd, ALCIRA 47 ml/m. The right atrium size is normal. Aortic Valve The aortic valve appears normal in structure and function. No aortic regurgitation is present. There is no aortic valvular stenosis. Mitral Valve The mitral valve is normal in structure and function. Mitral regurgitation is trace. There is no mitr al valve stenosis. Tricuspid Valve The tricuspid valve is normal in structure. There is trivial tricuspid valve regurgitation noted. Pulmonic Valve The pulmonary valve is normal in structure. There is no pulmonic valvular regurgitation. Great Vessels The aortic root is normal in size. The IVC is normal in size and collapses >50% with inspiration. Pericardium No pericardial effusion. Prominent anterior epicardial fat pad is present. Conclusion LVEF is 60-65%. The left atrium is moderately to severely dilatedd, ALCIRA 47 ml/m. Mitral regurgitation is trace.
[2024-12-15 03:55] LABS: HEMATOCRIT 33.7 % (36-48); MEAN CORPUSCULAR HEMOGLOBIN 33.6 pg (27.0-33.0); RED BLOOD CELL COUNT(AUTO) 3.51 MIL/uL (4.00-5.50); RED CELL DISTRIBUTION WIDTH 13.1 % (11.0-15.5); WHITE BLOOD COUNT (AUTO) 6.9 K/uL (4.8-10.8)
[2024-12-15 04:15] VITALS: BP 138/74; PULSE 72; RESP 18; TEMP 98.6
--- NOTE | 2024-12-15 07:29 | PN ---
[facility] Cardiology Progress Note CARDIOLOGY PROGRESS NOTE DECEMBER 15, 2024 Problems: 1. Chest pain 2. New onset atrial flutter 3. Hypertension 4. Obstructive sleep apnea 5. Parkinson's disease 6. CAD with 50% lad stenosis documented January 2001 7. Schizoaffective disorder 8. Statin intolerance Patient had presented with new onset atrial flutter. This morning blood pressure is 138/70 heart rate is in the 70s and the patient is afebrile. Hemoglobin 11.8 Platelet count [id number]. Potassium 3.8 BUN 22 creatinine 1.1. The patient continues on apixaban 5 mg b.i.d. aspirin atorvastatin diltiazem ER 120 mg daily furosemide Haldol isosorbide mononitrate levothyroxine losartan pantoprazole potassium protocol ropinirole and trazodone. Her 2D echocardiogram yesterday showed an ejection fraction of 60-65% with trace mitral regurgitation and no pericardial effusion. She remains in atrial flutter with controlled rate. She is currently resting comfortably flat denies any chest pain or shortness of breath. My standpoint she can be discharged home on her current regimen. She can have elective cardioversion versus a flutter ablation in 4-6 weeks. ADEN KAM MD December 15, 2024 07:29
[2024-12-15 08:19] VITALS: BP 148/99; PULSE 72; RESP 16; TEMP 97.9
[2024-12-15] MEDS: dilTIAZem 120MG SR CAP PO SCH (09:45)
--- NOTE | 2024-12-15 11:56 | DS ---
[facility] DISCHARGE SUMMARY Date Patient Seen: December 15, 2024 Time of Visit: 11:46 Supervising Physician: Dr. López Primary Care Physician: Dr. Jihan Jang Outpatient Specialists: [ ] Inpatient Consults: [ ] PROBLEM LIST: Angina Pectoris, POA resolved New onset Atrial flutter, POA currently controlled Hypothyroidism, POA Parkinson's disease, POA Hypertension, POA Hyperlipidemia, POA statin intolerance Hypomagnesemia, POA Schizoaffective disorder HOSPITAL COURSE: This is a 79-year-old female with past medical history of atrial flutter, Parkinson's disease, hypothyroidism, hyperlipidemia, hypertension and angina pectoralis who presented to ED via private vehicle with complaint of chest pain and found to have possible angina pectoralis. Apparently patient has been having issues with chest pain for the past days, that got worse today prompting ER visit. The patient at that she recently visited with her neurologist who referred her to therapy for her Parkinson and has been undergoing therapy over the past week. She reports the pain in the midsternal area between her breasts and is aware that the therapy might be the inciting factor of her pain. In ED stat CBC was done and showed no acute infection or anemia, her chemistry is unrevealing for any acute kidney or electrolyte abnormalities. Her initial troponin was normal with EKG showing atrial flutter with normal rate. Chest x-ray was also done and showed no acute intrapulmonary process, and CT of the head was also done showed chronic small-vessel disease. Troponin trend times 4 sets showed no elevation of concern 6 >> 9 >> 11.7 >>12.4. Total CK was within normal range highest at 47. Magnesium was 1.60, later corrected at 1.90. Currently on the monitor the patient is normal sinus rhythm. During my visit, the patient was lying in bed and reports feeling much better today. Does not report any further chest pain. I discussed at length the findings on the EKG, the current tracings on the monitor and the troponin trends. Advised the patient that she is stable enough can be discharged home and follow up in outpatient setting with her PCP and she agreed. The pain is reproducible and advised that this may have been secondary to her therapy which he started approximately a week ago. On 12/13 2024: During arrangements for janet esparza, the patient converted into Aflutter reason why discharge was held. Cardiology was brought on board and from their standpoint, 2D echo was ordered, the patient was started on Cardizem and was started on Lovenox. Per the cardiology report, 2D echocardiogram yesterday showed an ejection fraction of 60-65% with trace mitral regurgitation and no pericardial effusion. She remains in atrial flutter with controlled rate. Also adviced that she can have elective cardioversion versus Aflutter ablation in 4-6 weeks. She was cleared for discharge home. During my visit, the family members were present at the bedside ready to take the patient home. With that said, I am going to review and reconcile medication list for the patient and plan on discharging the patient home today. 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 Pt hemodynamically stable and afebrile at time of discharge. PCP notified of patients admission, hospital course and discharge. PHYSICAL EXAM: GENERAL: Alert, weak, awake oriented x 3 HEENT: EOMI, Sclera non icteric, moist mucosa NECK: Supple, no JVD, trachea midline LUNGS: Clear breath sounds bilaterally. No wheezes HEART: Regular rate and rhythm. Normal S1 and S2, without murmurs ABD: Abdomen soft, nontender. Bowel sounds present EXT: No clubbing cyanosis or edema NEURO: Alert and oriented to person, follows commands ; with significant hand tremors FOLLOW-UP: Follow-up with PCP in 2-3 days RECOMMENDATIONS: See Discharge Instructions This case was seen and discussed with my supervising physician. More than 30 minutes spent on discharge process, including evaluation of the patient, discussion with nursing staff, medication reconciliation and follow-up appointments ADELE MORAN NP December 15, 2024 11:56
[2024-12-15] MEDS ORDERED: DILT120C89 PO (12:06)
[2024-12-15] MEDS ORDERED: APIX5TAB PO (12:06)
[2024-12-15 12:31] VITALS: BP 120/57; PULSE 71; RESP 16; TEMP 97.9
== END 2024-12-15 14:10 | disposition home or self-care (01) ==
LOC: EDH 11:33 → INTOOBSV 16:58 → EDHIP 16:58 → OBSVTOIN 16:58 → EDHIP 16:58 → UNDOADMOB 16:58 → 2DH 16:58 → EDHIP 20:57 → OBSVTOIN 12-13 08:00 → EDHIP 12-13 08:00 → INTOOBSV 12-13 08:00 → 2DH 12-13 08:00 → UNDOADMOB 12-13 08:00
PROVIDERS: ADMIT Internal Medicine Critical Care Medicine; ATTEND Internal Medicine Critical Care Medicine
DX: I48.92 Unspecified atrial flutter (principal); E03.9 Hypothyroidism, unspecified; I10 Essential (primary) hypertension; E78.5 Hyperlipidemia, unspecified; E83.42 Hypomagnesemia; F25.9 Schizoaffective disorder, unspecified; G20.A1 Parkinson's disease without dyskinesia, without mention of fluctuations; F02.80 Dementia in other diseases classified elsewhere, unspecified severity, without behavioral disturbance, psychotic disturbance, mood disturbance, and anxiety; G47.33 Obstructive sleep apnea (adult) (pediatric); R00.0 Tachycardia, unspecified; I25.119 Atherosclerotic heart disease of native coronary artery with unspecified angina pectoris; Z79.899 Other long term (current) drug therapy
CPT/HCPCS: 96361 ×2; 96365; 96366 ×3; 96375 ×2; 99285; 82550 ×3; 83735 ×2; 84484 ×4; 80048 ×2; 83880; 85025; 85378; 85610; 85730; 81001; 36415 ×4; 71045; 70450; 93005; 96376; 96372; 82948; 93306; 93356; 85027; G0378 ×53; J3475 ×2; J7120; J0360 ×2; J3490; J1650 ×2; 96374

== ENCOUNTER 2024-12-17 07:35 | Emergency (ER) | payer MEDICARE ==
[~2024-12-17] VITALS: Ht 162.6 cm; Wt 63.5 kg
[~2024-12-17 07:35] MED LIST changes: -AMOX1TAB16 PO; +APIX5TAB PO; -DICY20TA3 PO; +DILT120C89 PO; -FLUT16H NASAL; -MELA3TAB69 PO; -METO-391 PO; -MIRA25TA PO; +ROPI0.2535 PO; -SIME125C81 PO; -SUCR1TAB2 PO; +TRAZ-185 PO; -VITAMIN D PO
--- NOTE | 2024-12-17 07:51 | ERN ---
General Chief Complaint: Altered Mental Status Stated Complaint: PT FEELS CONFUSED BUT GCS 15 Time Seen by MD: 07:40 History of Present Illness Initial Comments 79-year-old female brought in by EMS for altered mental status/confusion. Patient was just recently discharged from this hospital. She reports that she took asleep they last night. When she woke up this morning she felt like she was in a dream state. She felt like she control her body in her thoughts. She has a GCS 15 on arrival. She denies headache. Denies vision changes. No focal neurologic deficits. Denies any fevers chills or vomiting. Allergies: Coded Allergies: No Allergy Information Available (Verified Allergy, Unknown, 02/11/16) No Known Drug Allergies (Unverified Allergy, Unknown, 11/20/19) Home Meds Active Scripts Diltiazem HCl (Cardizem Cd 120 mg) 120 Mg Cap.er.24h, 120 MG PO DAILY, #[address]SU[address] Prov:ADELE MORAN GASTROENTEROLOGY TEACHER 12/15/24 Apixaban (Eliquis) 5 Mg Tablet, 5 MG PO BID for 30 Days, #60 TAB Prov:ADELE MORAN GASTROENTEROLOGY TEACHER 12/15/24 Reported Medications Haloperidol (Haloperidol) 2 Mg Tablet, 1 TAB PO DAILY for 30 Days, #60 TAB 0 Refills 12/12/24 Haloperidol (Haloperidol) 2 Mg Tablet, 1 TAB PO BID for 30 Days, #60 TAB 0 Refills 12/12/24 Haloperidol (Haloperidol) 2 Mg Tablet, 2 TAB PO HS for 30 Days, #30 TAB 0 Refills 12/12/24 Isosorbide Mononitrate (Isosorbide Mononitrate ER) 30 Mg Tab.er.24h, 0.5 TAB PO DAILY for 30 Days, #30 TAB 0 Refills 12/12/24 Ropinirole HCl (Ropinirole HCl) 0.25 Mg Tablet, 1 TAB PO HS for 30 Days, #30 TAB 0 Refills 12/12/24 Propranolol HCl (Propranolol HCl) 20 Mg Tablet, 1 TAB PO BID for 30 Days, #60 TAB 0 Refills 12/12/24 Trazodone HCl (Trazodone HCl) 50 Mg Tablet, 1 TAB PO HS for 30 Days, #30 TAB 0 Refills 12/12/24 Aspirin (ASPIRIN 81 MG ECTAB) 81 Mg Ectab, 81 MG PO DAILY, TAB.EC 12/27/22 Linaclotide (Linzess) 145 Mcg Capsule, 145 MCG PO DAILY, CAP 12/27/22 Losartan Potassium (Losartan Potassium) 50 Mg Tablet, 50 MG PO DAILY, TAB 12/27/22 Esomeprazole Magnesium (Esomeprazole Magnesium) 40 Mg Capsule.dr, 40 MG PO DAILY, CAP 12/27/22 Furosemide (Furosemide) 20 Mg Tablet, 20 MG PO DAILY, TAB 12/27/22 Divalproex Sodium (Divalproex Sodium ER) 500 Mg Tab.er.24h, 500 MG PO BID, TAB 12/27/22 Atorvastatin Calcium (LIPITOR) 40 Mg Tablet, 40 MG PO DAILY, TAB 12/27/22 Levothyroxine Sodium (Levothyroxine) 50 Mcg Capsule, 50 MCG PO DAILY, CAP 12/27/22 Sodium Chloride (Sodium Chloride) 1,000 Mg Tab, 1000 MG PO BID, TAB 12/27/22 Discontinued Reported Medications [Vitamin D] No Conflict Check, 93084 UNITS PO AD 12/27/22 Simethicone (Simethicone) 125 Mg Capsule, 125 MG PO QID, CAP 12/27/22 Melatonin (Melatonin) 3 Mg Tab.rapdis, 3 MG PO DAILY, TAB 12/27/22 Dicyclomine HCl (Dicyclomine HCl) 20 Mg Tablet, 20 MG PO DAILY, TAB 12/27/22 Metoprolol Succinate (Metoprolol Succinate) 50 Mg Tab.er.24h, 50 MG PO DAILY, TAB 12/27/22 Mirabegron (Myrbetriq) 25 Mg Tab.er.24h, 25 MG PO DAILY, TAB 12/27/22 Sucralfate (Sucralfate) 1 Gm Tablet, 1 GM PO TID, TAB 12/27/22 Isosorbide Mononitrate (Isosorbide Mononitrate ER) 30 Mg Tab.er.24h, 30 MG PO DAILY, TAB 12/27/22 Propranolol HCl (Propranolol HCl) 20 Mg Tablet, 20 MG PO TID, TAB 12/27/22 Haloperidol (Haloperidol) 2 Mg Tablet, 2 MG PO BID, TAB 12/27/22 Discontinued Scripts Fluticasone Propionate (Flonase Nasal Wren) 50 Mcg/Actuation Wren, 1-2 SPRAY NASAL ONCE, #1 BOTTLE 0 Refills Prov:CHARLIE ROWELL [facility] 11/09/23 Amoxicillin/Potassium Clav (Amox Tr-K Clv 875-125 mg Tab) 875 Mg-125 Mg Tablet, 1 EACH PO BID for 7 Days, #14 TAB 0 Refills Prov:CHARLIE ROWELL [facility] 11/09/23 Past Medical History Past Medical History: Other Medical History Other: PARKINSONS, SLEEP APNEA Past Surgical History: None Surgical History Other: CARDIAC Female( History) History: Not Applicable ROS Dictation CONSTITUTIONAL: No chills, no fever, no weakness, no diaphoresis, no malaise. HEAD/FACE: No signs of trauma. EENT: No eye pain, no blurred vision, no tearing, no double vision, no ear pain, no ear discharge, no nose pain, no nasal congestion, no throat pain, no throat swelling, no mouth pain. RESPIRATORY: No cough, no orthopnea, no SOB, no stridor, no wheezing. CARDIOVASCULAR: No chest pain, no edema, no palpitations, no syncope. GASTROINTESTINAL/ABDOMINAL: No abdominal pain, no constipation, no diarrhea, no nausea, no vomiting. GENITOURINARY: No abnormal discharge, no dysuria, no frequent urination, no hematuria. No complaints of pain in the genitals. MUSCULOSKELETAL: No back pain, no gout, no joint pain, no joint swelling, no muscle pain, no muscle stiffness, no neck pain. INTEGUMENTARY: No change in color, no change in hair/nails, no dryness, no lesion, no lumps, no rash. NEUROLOGICAL/PSYCH: Altered mentation HEMATOLOGIC/LYMPHATIC: Not anemic, no history of blood clots, no apparent bleeding, no bruising, glands not swollen. All Systems Negative, Except as Noted. Physical Exam Physical Exam Dictation VITAL SIGNS: Reviewed. GENERAL APPEARANCE: Alert, oriented x3, no acute distress HEAD AND FACE: Non-traumatic. EYES: PERRL, pink conjunctivas, eyelid no trauma, anterior chamber clear. EARS: Pinnas intact and no signs of trauma or erythema. Ear canals clear and no discharge. TMs no erythema. NOSE: No discharge, no bleeding. OROPHARYNX: Mouth normal, teeth no caries, tongue pink. Pharynx clear, no erythema. Tonsils no exudates, no abscesses noted. Mucous membrane moist. NECK: Supple, non-tender, no thyromegaly, no masses, no JVD, no bruits. BREAST: Deferred. CHEST: No tenderness, no crepitus, no paradoxical movement, no retractions. LUNGS: Clear, well-ventilated, symmetric, no rales, no wheezing, no rhonchi, no stridor, good breath sounds bilaterally. HEART: Regular rate, regular rhythm, no murmur, no gallops. VASCULAR: No peripheral edema. ABDOMEN: Soft, positive bowel sounds, nondistended, no guarding, nontender, no rebound, no masses no hepatomegaly, no splenomegaly, no Valentino's sign, no hernias. RECTAL: Deferred. GENITAL: Deferred. NEUROLOGICAL: Normal speech, gross motor function intact, gross sensory func tion intact. MUSCULOSKELETAL: Neck nontender, full range of motion, back nontender, full range of motion. EXTREMITIES: Nontender, full range of motion. SKIN: Color pink, dry, no turgor, no rash, no lacerations, no abrasions, no contusions. LYMPHATICS: Deferred. Results Laboratory and Microbiology Lab and Micro Result Laboratory Tests Test 12/17/24 08:47 12/17/24 09:50 White Blood Count 7.2 K/uL (4.8-10.8) Red Blood Count 3.43 MIL/uL (4.00-5.50) L Hemoglobin 11.4 g/dL (12.0-16.0) L Hematocrit 33.0 % (36-48) L Mean Corpuscular Volume 96.2 fL (79-99) Mean Corpuscular Hemoglobin 33.2 pg (27.0-33.0) H Mean Corpuscular Hemoglobin Concent 34.5 g/dL (32.0-36.0) Red Cell Distribution Width 13.3 % (11.0-15.5) Platelet Count 154 K/uL (130-400) Mean Platelet Volume 10.2 fL (7.5-10.5) Immature Granulocyte % (Auto) 0.1 % (0-1) Neutrophils (%) (Auto) 59.2 % (40.0-77.0) Lymphocytes (%) (Auto) 29.9 % (21.0-51.0) Monocytes (%) (Auto) 9.6 % (3.0-13.0) Eosinophils (%) (Auto) 0.8 % (0.0-8.0) Basophils (%) (Auto) 0.4 % (0.0-5.0) Neutrophils # (Auto) 4.2 K/uL (1.8-7.7) Lymphocytes # (Auto) 2.1 K/uL (1.0-4.8) Monocytes # (Auto) 0.7 K/uL (0.1-1.0) Eosinophils # (Auto) 0.06 K/uL (0.00-0.70) Basophils # (Auto) 0.03 K/uL (0.00-0.20) Absolute Immature Granulocyte (auto 0.01 K/uL (0-1) Nucleated Red Blood Cells 0.0 % (0.0-0.19) Sodium Level 141 mmol/L (136-145) Potassium Level 4.1 mmol/L (3.5-5.1) Chloride Level 105 mmol/L (101-111) Carbon Dioxide Level 28 mmol/L (21-32) Blood Urea Nitrogen 28 mg/dL (7-18) H Creatinine 1.0 mg/dL (0.5-1.0) Glomerular Filtration Rate Calc 57 mL/min (>90) Random Glucose 93 mg/dL (70-105) Total Calcium 9.4 mg/dL (8.5-10.1) Ammonia < 10 umol/L (11-32) L Total Creatine Kinase 39 U/L (21-232) Troponin I High Sensitivity 13.3 ng/L (4-50) Serum Alcohol < 3 mg/dL (0-10) Urine Color COLORLESS (YELLOW) Urine Appearance CLEAR (CLEAR) Urine pH 6.5 (5.0-8.0) Urine Specific [place] 1.009 (1.001-1.031) Urine Protein NEGATIVE mg/dL (NEGATIVE) Urine Glucose (UA) NEGATIVE mg/dL (NEGATIVE) Urine Ketones NEGATIVE mg/dL (NEGATIVE) Urine Occult Blood NEGATIVE (NEGATIVE) Urine Nitrate NEGATIVE (NEGATIVE) Urine Bilirubin NEGATIVE mg/dL (NEGATIVE) Urine Urobilinogen 0.2 mg/dL (0.2-1.0) Urine Leukocyte Esterase NEGATIVE Alirio/uL Urine Opiates Screen NEGATIVE (NEGATIVE) Urine Barbiturates Screen NEGATIVE (NEGATIVE) Urine Phencyclidine Screen NEGATIVE (NEGATIVE) Urine Amphetamines Screen NEGATIVE (NEGATIVE) Urine Benzodiazepines Screen NEGATIVE (NEGATIVE) Urine Cocaine Screen NEGATIVE (NEGATIVE) Urine Marijuana (THC) Screen NEGATIVE (NEGATIVE) MDM CC: Episode of visit dreams confusion per EMS Historian: Patient Comorbidities: Advanced age, hypertension, paroxysmal atrial fibrillation Limitations by social determinants of health: None Differential diagnosis: Stroke, medication side effect, arrhythmia, infection, other. Vital signs: Initially hypertensive 206/96. This improved in the ER with treatment. Vital signs otherwise stable. Clinical exam is unremarkable. No signs of stroke, NIHSS of 0, GCS 15 on my evaluation. EKG: Sinus rhythm, rate 61, normal axis, good R-wave progression, intervals are stable no STEMI. Independently interpreted by me. Labs show no leukocytosis. Normocytic anemia hemoglobin 11.4. Chemistry shows stable electrolytes, glucose normal, ammonia normal, CK normal, troponin normal. Tox screen negative. Alcohol negative. Urinalysis negative. CT head without contrast (independently interpreted by me): No acute shift or bleeding. No major abnormalities. Chronic changes. Treatment in ED: Hydralazine 10 mg. Reassessment: GCS 15. Plan: I had a conversation with the family regarding admission. I did offer an admission for observation, but the patient reports that she feels better now. She recently started Cardizem and Eliquis. She thinks this may be a medication side effect. She is currently at baseline. She reports that her symptoms were a very vivid dream that she felt like she could not control her body, but now she understands that she was dreaming, she has a no signs of stroke or any sort of major organic abnormalities. At this point in time patient has a safe discharge, she lives alone but has providers, her sisters at the bedside and can visit her multiple times throughout the day. Patient prefers to go home at this time. She will follow up with Dr. Enciso this week. ED Course Orders Procedure Category Date Status Time Cardiac Panel LAB 12/17/24 Complete 07:40 Cbc With Differential LAB 12/17/24 Complete 07:40 Basic Metabolic Panel LAB 12/17/24 Complete 07:40 Urinalysis Profile LAB 12/17/24 Complete 07:40 Drug Screen Urine LAB 12/17/24 Complete 07:40 Alcohol, Blood LAB 12/17/24 Complete 07:40 Ct Head/Brain W/O CT 12/17/24 Resulted Contrast 07:40 Ammonia LAB 12/17/24 Complete 07:40 12 Lead Ekg Tracing- EKG 12/17/24 Complete Technical 07:40 Case Management CM 12/17/24 Transmitted Evaluation 07:57 Hydralazine 20mg Inj PHA 12/17/24 Complete (Apresoline 20mg In 11:00 Current Medications Medications (Trade) Dose Ordered Sig/Alex Route PRN Reason Start Time Stop Time Status Last Admin Dose Admin Hydralazine HCl (APRESOLine 20MG INJ) 10 mg ONCE ONCE IV 12/17/24 11:00 12/17/24 11:01 DC 12/17/24 11:06 Vital Signs Date Time Temp Pulse Resp B/P (MAP) Pulse Ox O2 Delivery O2 Flow Rate FiO2 12/17/24 08:31 98.8 74 18 96/45 96 Room Air* 0 21 12/17/24 07:44 97.3 66 12 206/96 97 Room Air 0 DX & DISP Disposition: Discharge Departure Impression: Primary Impression: Medication side effect Condition: Stable Additional Instructions: Your symptoms may be related to a recently started medication. It may also be related to heavy sleep at due to your recent hospitalization. Your blood pressure was mildly elevated here in the ER. Please continue with your home blood pressure medications. I recommend you take your blood pressure once per day and record the finding. You can take this to Dr. Enciso when you visit here later this week. Your blood work (CBC, metabolic panel, CK, ammonia, troponin, urinalysis) is normal. The CT scan of your brain shows no acute new abnormalities. Your EKG is stable. As we discussed, monitor for further symptoms. Discuss these symptoms with Dr. Enciso later this week. Please return to the emergency department if you have any concerns. Referrals: ARTURO MOORE MD (PCP) NADER CABALLERO DO December 17, 2024 07:51
--- NOTE | 2024-12-17 08:06 | EKG ---
[facility] Test Date: 2024-12-17 Test Time: 08:03:40 Pat Name: SIVAKUMAR PRESCOTT Department: [facility] Room: Gender: F Case Briefer: [id number] : 1945 Requested By: NADER CABALLERO Order Number: [id number] Reading MD: Sonya Russo Measurements Intervals [place] Rate: 61 P: 47 VA: 214 QRS: 26 QRSD: 89 T: 77 QT: 416 QTc: 421 Interpretive Statements Sinus rhythm Borderline prolonged VA interval Nonspecific T abnrm, anterolateral leads Compared to ECG 12/12/2024 11:40:35 Atrial flutter no longer present AV block, advanced (high-grade) no longer present Early repolarization no longer present Possible ischemia no longer present Electronically Signed On 12-18-2024 14:22:30 CDT by Sonya Russo Please click the below link to view image of tracing.
[2024-12-17 08:57] LABS: BASOPHILS # (AUTO) 0.03 K/uL (0.00-0.20); BASOPHILS % (AUTO) 0.4 % (0.0-5.0); EOSINOPHILS # (AUTO) 0.06 K/uL (0.00-0.70); EOSINOPHILS % (AUTO) 0.8 % (0.0-8.0); IMMATURE GRANULOCYTE ABSOLUTE 0.01 K/uL (0-1); LYMPHOCYTES # (AUTO) 2.1 K/uL (1.0-4.8); LYMPHOCYTES % (AUTO) 29.9 % (21.0-51.0); MEAN CORPUSCULAR HEMOGLOBIN 33.2 pg (27.0-33.0); MEAN CORPUSCULAR HGB CONC 34.5 g/dL (32.0-36.0); MEAN CORPUSCULAR VOLUME 96.2 fL (79-99); MONOCYTES # (AUTO) 0.7 K/uL (0.1-1.0); MONOCYTES % (AUTO) 9.6 % (3.0-13.0); NEUTROPHILS # (AUTO) 4.2 K/uL (1.8-7.7); NEUTROPHILS % (AUTO) 59.2 % (40.0-77.0); PLATELET COUNT (AUTO) 154 K/uL (130-400); RED BLOOD CELL COUNT(AUTO) 3.43 MIL/uL (4.00-5.50); RED CELL DISTRIBUTION WIDTH 13.3 % (11.0-15.5); WHITE BLOOD COUNT (AUTO) 7.2 K/uL (4.8-10.8)
[2024-12-17 09:04] LABS: CARBON DIOXIDE 28 mmol/L (21-32); CHLORIDE 105 mmol/L (101-111); GLOMERULAR FILTR. RATE CALC 57 mL/min (>90); GLUCOSE,RANDOM 93 mg/dL (70-105); POTASSIUM 4.1 mmol/L (3.5-5.1); SODIUM SERUM 141 mmol/L (136-145); UREA NITROGEN, BLOOD 28 mg/dL (7-18)
[2024-12-17 09:11] LABS: AMMONIA < 10 umol/L (11-32); CREATINE KINASE, TOTAL 39 U/L (21-232)
--- NOTE | 2024-12-17 09:15 | HMCIMG ---
CT HEAD WITHOUT CONTRAST INDICATION: Altered mental status TECHNIQUE: Noncontrast axial helical CT images from the vertex through the skull base using 5 mm slice thickness without contrast material. Coronal and sagittal reconstructions were also included. Dose reduction techniques was used using integrated, automated and adaptive dose reduction exposure control. CT was performed with one or more of the following dose reduction techniques: Automated exposure control, adjustment of the mA and/or kV according to patient size, or use of iterative reconstruction technique. COMPARISON: None FINDINGS: Scattered and coalescent subcortical and periventricular white matter low attenuating areas likely represent residual of chronic small vessel arteriopathy and/or remote vascular insult. Generalized mild cerebral cortical atrophy is present.. No evidence for abnormal extra-axial fluid collections or masses. The ventricles and sulci are normal in size and configuration. No evidence for intracranial parenchymal, epidural, or subdural hemorrhage, mass effect or midline shift. The layton-white matter differentiation is well preserved. No secondary evidence to suggest acute ischemia. Mild calcific plaque is present along the gardner of the cavernous segments of both internal carotid arteries. The brainstem and cerebellum appear normal. The visualized orbits appear unremarkable. The visible paranasal sinuses and mastoid air cells are clear. The calvarium appears normal. IMPRESSION: Chronic white matter ischemic changes, mild brain atrophy, and arteriosclerotic disease as described, without acute component.
[2024-12-17 09:17] LABS: ALCOHOL, BLOOD < 3 mg/dL (0-10)
[2024-12-17 10:12] LABS: APPEARANCE,URINE CLEAR (CLEAR); BILIRUBIN,URINE NEGATIVE (NEGATIVE); COLOR,URINE COLORLESS (YELLOW); GLUCOSE, URINE (UA) NEGATIVE (NEGATIVE); KETONES,URINE NEGATIVE (NEGATIVE); LEUKOCYTE ESTERASE ,URINE NEGATIVE Leu/uL (NEGATIVE); NITRATE,URINE NEGATIVE (NEGATIVE); OCCULT BLOOD,URINE NEGATIVE (NEGATIVE); PH,URINE 6.5 (5.0-8.0); PROTEIN,URINE NEGATIVE (NEGATIVE); UROBILINOGEN,URINE 0.2 mg/dL (0.2-1.0)
[2024-12-17 10:14] LABS: ADD UA MICROSCOPIC NO
[2024-12-17 10:16] LABS: AMPHET/METH SCREEN,URINE NEGATIVE (NEGATIVE); BARBITURATE SCREEN, URINE NEGATIVE (NEGATIVE); BENZODIAZEPINES SCREEN,URINE NEGATIVE (NEGATIVE); CANNABINOID SCREEN,URINE NEGATIVE (NEGATIVE); COCAINE SCREEN,URINE NEGATIVE (NEGATIVE); OPIATE SCREEN,URINE NEGATIVE (NEGATIVE); PHENCYCLIDINE SCREEN,URINE NEGATIVE (NEGATIVE)
[2024-12-17] MEDS: hydrALAZine 20MG/ML VIAL IV ONE (11:06)
[2024-12-17 12:42] VITALS: BP 147/52; PULSE 67; RESP 16; TEMP 98.8; O2SAT 98
--- NOTE | 2024-12-17 13:00 | NUR ---
PT STABLE NO DISTRESS, PT C/O PAIN , PT STATES SHE FEELS BETTER READY TO GO HOME.PT GIVEN INSTRUCTION WITH SISTER AT BEDSIDE BY DR CABALLERO. PT IV REMOVED CATHETER INTACT PT TAKEN OUT IN W/C DRIVEN HOME BY SISTER.
== END 2024-12-17 13:02 | disposition home or self-care (01) ==
LOC: EDH 07:35
DX: R41.82 Altered mental status, unspecified (principal); T46.1X5A Adverse effect of calcium-channel blockers, initial encounter; Z79.01 Long term (current) use of anticoagulants; Z79.82 Long term (current) use of aspirin; Z79.890 Hormone replacement therapy; Z79.899 Other long term (current) drug therapy; Y92.89 Other specified places as the place of occurrence of the external cause
CPT/HCPCS: 99285; 96374; 70450; 82550; 84484; 80048; 80305; 82140; 85025; 81003; 36415; 93005; J0360

== ENCOUNTER 2025-01-10 15:43 | Emergency (ER) | payer MEDICARE ==
[~2025-01-10] VITALS: Ht 165.1 cm; Wt 65.3 kg
[2025-01-10 15:46] VITALS: BP 134/61; PULSE 60; RESP 20; TEMP 98.1
--- NOTE | 2025-01-10 16:03 | NUR ---
PT AND FAMILY MEMBER CAME UP TO TRIAGE WINDOW TO ADVISE US THAT SHE WILL BE LEAVING AND DOES NOT WANT TO WAIT. PT WAS ADVISED SHE WAS NEXT TO BE TAKEN INTO INTERNAL WAITING AREA BUT SHE INSISTED IN LEAVING. PT BP WAS WNL, NAD, AND BEING WHEELED OUT ER LOBBY BY FAMILY MEMBER. MD PROVIDER DR VERGARA MADE AWARE.
--- NOTE | 2025-01-10 16:10 | ERN ---
ED Note History of Present Illness Stated Complaint: LOW BP Chief Complaint: Hypotension Time Seen by MD: 15:55 Dictation: Patient left without being seen by provider Allergies: Coded Allergies: No Allergy Information Available (Verified Allergy, Unknown, 02/11/16) No Known Drug Allergies (Unverified Allergy, Unknown, 11/20/19) Home Meds Active Scripts Diltiazem HCl (Cardizem Cd 120 mg) 120 Mg Cap.er.24h, 120 MG PO DAILY, #30 CAPSULE. Prov:ADELE MORAN TOOL AND DIE REPAIR 12/15/24 Apixaban (Eliquis) 5 Mg Tablet, 5 MG PO BID for 30 Days, #60 TAB Prov:ADELE MORAN TOOL AND DIE REPAIR 12/15/24 Reported Medications Haloperidol (Haloperidol) 2 Mg Tablet, 1 TAB PO DAILY for 30 Days, #60 TAB 0 Refills 12/12/24 Haloperidol (Haloperidol) 2 Mg Tablet, 1 TAB PO BID for 30 Days, #60 TAB 0 Refills 12/12/24 Haloperidol (Haloperidol) 2 Mg Tablet, 2 TAB PO HS for 30 Days, #30 TAB 0 Refills 12/12/24 Isosorbide Mononitrate (Isosorbide Mononitrate ER) 30 Mg Tab.er.24h, 0.5 TAB PO DAILY for 30 Days, #30 TAB 0 Refills 12/12/24 Ropinirole HCl (Ropinirole HCl) 0.25 Mg Tablet, 1 TAB PO HS for 30 Days, #30 TAB 0 Refills 12/12/24 Propranolol HCl (Propranolol HCl) 20 Mg Tablet, 1 TAB PO BID for 30 Days, #60 TAB 0 Refills 12/12/24 Trazodone HCl (Trazodone HCl) 50 Mg Tablet, 1 TAB PO HS for 30 Days, #30 TAB 0 Refills 12/12/24 Aspirin (ASPIRIN 81 MG ECTAB) 81 Mg Ectab, 81 MG PO DAILY, TAB.EC 12/27/22 Linaclotide (Linzess) 145 Mcg Capsule, 145 MCG PO DAILY, CAP 12/27/22 Losartan Potassium (Losartan Potassium) 50 Mg Tablet, 50 MG PO DAILY, TAB 12/27/22 Esomeprazole Magnesium (Esomeprazole Magnesium) 40 Mg Capsule.dr, 40 MG PO DAILY, CAP 12/27/22 Furosemide (Furosemide) 20 Mg Tablet, 20 MG PO DAILY, TAB 12/27/22 Divalproex Sodium (Divalproex Sodium ER) 500 Mg Tab.er.24h, 500 MG PO BID, TAB 12/27/22 Atorvastatin Calcium (LIPITOR) 40 Mg Tablet, 40 MG PO DAILY, TAB 12/27/22 Levothyroxine Sodium (Levothyroxine) 50 Mcg Capsule, 50 MCG PO DAILY, CAP 12/27/22 Sodium Chloride (Sodium Chloride) 1,000 Mg Tab, 1000 MG PO BID, TAB 12/27/22 Past Medical History Past Medical History: Hypertension, Other Additional Past Medical Hx: PARKINSONS, SLEEP APNEA, [place] AND ANGER ISSUES Surgical History: Other Surgical History Other: CARDIAC History: Not Applicable Review of System Dictation eloped Initial Vital Sign VS Vital Signs Date Time Temp Pulse Resp B/P (MAP) Pulse Ox O2 Delivery O2 Flow Rate FiO2 01/10/25 15:46 98.1 60 20 134/61 99 Room Air Physical Exam Dictation . ED Course ED Course Orders Procedure Category Date Status Time 12 Lead Ekg Tracing- EKG 01/10/25 Logged Technical 15:57 B-Type Natriuretic LAB 01/10/25 Logged Peptide 15:57 Basic Metabolic Panel LAB 01/10/25 Logged 15:57 Cbc With Differential LAB 01/10/25 Logged 15:57 Creatine Kinase, Total LAB 01/10/25 Logged 15:57 Hepatic Function Panel LAB 01/10/25 Logged 15:57 Pt And Ptt LAB 01/10/25 Logged 15:57 Troponin I High LAB 01/10/25 Logged Sensitivity 15:57 Urinalysis Profile LAB 01/10/25 Logged 15:57 Chest 1vw RAD 01/10/25 Logged 15:57 Vital Signs Date Time Temp Pulse Resp B/P (MAP) Pulse Ox O2 Delivery O2 Flow Rate FiO2 01/10/25 15:46 98.1 60 20 134/61 99 Room Air Medical Decision Making MDM . DX & DISP Disposition: Other(Comment) Departure Condition: Stable Referrals: ARTURO MOORE MD (PCP) DENIZ VERGARA MD Jan 10, 2025 16:09
== END 2025-01-10 16:19 | disposition left against medical advice (07) ==
LOC: EDH 15:43
DX: I95.9 Hypotension, unspecified (principal); G20.A1 Parkinson's disease without dyskinesia, without mention of fluctuations; G47.30 Sleep apnea, unspecified; I10 Essential (primary) hypertension; Z53.21 Procedure and treatment not carried out due to patient leaving prior to being seen by health care provider; Z79.01 Long term (current) use of anticoagulants; Z79.82 Long term (current) use of aspirin; Z79.890 Hormone replacement therapy; Z79.899 Other long term (current) drug therapy

== ENCOUNTER → 2025-03-22 | Outpatient (CLI) | payer MEDICARE ==
--- NOTE | 2025-03-22 10:35 | HMCIMG ---
ANKLE 2VWS LT REASON: LEFT ANKLE PAIN TECHNIQUE: 2 views were obtained. FINDINGS: There is no evidence of fracture or dislocation. There is no joint effusion. The soft tissues appear unremarkable. There is no evidence of a radiopaque foreign body. There is mild osteopenia. IMPRESSION: No acute findings. Mild osteopenia
== END | disposition home or self-care (01) ==
LOC: RAH 09:47
PROVIDERS: ATTEND Family Medicine
DX: M85.872 Other specified disorders of bone density and structure, left ankle and foot (principal); M25.572 Pain in left ankle and joints of left foot; M85.88 Other specified disorders of bone density and structure, other site
CPT/HCPCS: 73600

== ENCOUNTER → 2025-06-15 | Outpatient (CLI) | payer MEDICARE ==
--- NOTE | 2025-06-16 02:27 | HMCIMG ---
STUDY: X-RAY OF THE CHEST, 2 VIEWS HISTORY: Shortness of breath. TECHNIQUE: PA and lateral views of the chest are submitted for interpretation. COMPARISON: Chest radiograph from 12/15/2013. FINDINGS: Pulmonary watson: Mild attenuation of the bronchovascular markings, stable compared with the prior study. No focal pulmonary infiltrate, consolidation, or pulmonary edema is identified. Cardiac silhouette: Borderline cardiomegaly, unchanged from the prior examination. Mediastinum and malvin: Mediastinal contours are within normal limits. Calcification of the aortic arch is present, similar to the prior study. Hilar structures are unremarkable. Osseous structures: Visualized ribs, clavicles, thoracic spine, and sternum show no acute osseous abnormality. Miscellaneous: No pleural effusion or pneumothorax is seen. Costophrenic angles are clear bilaterally. No free subdiaphragmatic air is identified. IMPRESSION: * Stable borderline cardiomegaly. * Stable aortic arch calcification compatible with chronic atherosclerotic change. * Mild attenuation of the bronchovascular markings, unchanged. * Compared with the chest radiograph from 12/15/2013, findings are overall stable with no new acute cardiopulmonary abnormality identified. /[place]
== END | disposition home or self-care (01) ==
LOC: RAH 15:07
PROVIDERS: ATTEND Family Medicine
DX: R06.02 Shortness of breath (principal); I70.0 Atherosclerosis of aorta
CPT/HCPCS: 71046